=== PATIENT | female | born 1985 | race Caucasian/White ===

== ENCOUNTER 2021-09-28 22:04 | Emergency (ER) | payer BC, SELFPAY ==
[2021-09-28 22:29] VITALS: BP 155/115; PULSE 120; RESP 20; TEMP 36.8; O2SAT 98; BMI 47.0
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
[2021-09-28 23:15] VITALS: BP 171/101; PULSE 109; RESP 18; O2SAT 100
[2021-09-28 23:20] VITALS: BP 147/104; PULSE 111; RESP 18; O2SAT 98
--- NOTE | 2021-09-28 23:24 | ED.NURSE ---
pt ambulatory to the BR
--- NOTE | 2021-09-29 00:39 | ED.NURSE ---
right hand soaking in hibiclens and water
[2021-09-29] MEDS: IBUPROFEN 400 MG TABLET 800 MG PO (01:12)
[2021-09-29] MEDS: OxyCODONE/APAP 5-325 TABLET 2 TAB PO (01:13)
--- NOTE | 2021-09-29 01:31 | CRLHL7_ITS ---
For Patients: As a result of the Century Cures Act, medical imaging exams and procedure reports are released immediately into your electronic medical record. You may view this report before your referring provider. If you have questions, please contact your health care provider. Indication: Foreign body removal. Technique: Right 5th finger 3 views. Comparison: September 28, 2021. Findings/Impression: The bulk of a foreign metallic object adjacent to the middle phalanx of the right 5th finger has been removed. However, several punctate densities remain in this area. No new abnormality. Dictated by Tani Bravo MD @ 09/29/2021 2:03:08 AM (Electronically Signed)
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
== END 2021-09-29 02:20 ==
PROVIDERS: Emergency Provider Family Medicine; PCP Family Medicine
DX: M79.5 Residual foreign body in soft tissue (principal); W39.XXXA Discharge of firework, initial encounter; H93.19 Tinnitus, unspecified ear
CPT/HCPCS: 10120; 70360; 73140; 99282; 99284; A9270

== ENCOUNTER 2022-01-07 08:53 | Outpatient (CLI) | payer BC, SELFPAY ==
[2022-01-07 13:15] LABS: Chloride* 99 mmol/L (96-114); Sodium* 134 mmol/L (135-149)
[2022-01-07 13:16] LABS: Potassium* 4.5 mmol/L (3.6-5.1)
[2022-01-07 13:17] LABS: Estimated Glomerular Filt Rate 75 ml/min
[2022-01-07 13:18] LABS: Blood Urea Nitrogen* 16 mg/dL (5-24); Calcium* 9.4 mg/dL (8.4-10.6); Carbon Dioxide* 24 mmol/L (20-32); Glucose* 85 mg/dL (60-115)
== END 2022-01-07 08:54 | disposition home or self-care (01) ==
LOC: FBOREF 08:54
PROVIDERS: PCP Family Medicine; Visit Provider Family Medicine
DX: I10 Essential (primary) hypertension (principal)
CPT/HCPCS: 80048

== ENCOUNTER 2022-01-28 11:14 | Outpatient (CLI) | payer BC, SELFPAY | END 2022-01-28 11:15 | disposition home or self-care (01) | LOC: NFLDREF 11:14 | PROVIDERS: PCP Family Medicine; Visit Provider Family Medicine | DX: R30.9 Painful micturition, unspecified (principal) | CPT/HCPCS: 87086 ==

== ENCOUNTER 2022-12-03 08:42 | Outpatient (CLI) | payer BC, SELFPAY | END 2022-12-03 08:43 | disposition home or self-care (01) | PROVIDERS: PCP Family Medicine; Visit Provider Family Medicine | DX: Z01.818 Encounter for other preprocedural examination (principal); E55.9 Vitamin D deficiency, unspecified; E66.01 Morbid (severe) obesity due to excess calories; I10 Essential (primary) hypertension; N92.0 Excessive and frequent menstruation with regular cycle | CPT/HCPCS: 80048; 82306; 84443; 85302 ==

== ENCOUNTER 2022-12-08 11:23 | Emergency (ER) | payer BC, SELFPAY ==
[2022-12-08] VITALS (8 sets, daily range): BP systolic 135–142; BP diastolic 78–91; PULSE 90–121; RESP 18–24; TEMP 36.4; O2SAT 96–98; BMI 56.4
--- NOTE | 2022-12-08 11:32 | ED.ARRPALP ---
HPI - Arrhythmia/Palpitations General Time Seen by Provider: 11:32 Date Seen: 12/08/22 Chief Complaint: Arrhythmia/Palpitations Stated Complaint: Tight chest / tailbone injury Time Seen by Provider: 12/08/22 11:27 Source: patient and RN notes reviewed Mode of arrival: ambulatory Limitations: no limitations History of Present Illness HPI narrative: This 37-year-old female is coming in with multitude of symptoms. One of her main issues is increasing tailbone pain. It hurts to sit, sleeping is difficult. She will try to sleep on her stomach or her side with pillows between her legs. She is endorsing that it is hurting in the tailbone to defecate. There is no difficulty with defecation itself or change in stools but it is extremely painful at the tailbone. She is feeling some pain into the right buttock area maybe a little bit down into the lateral thigh. She does have chronic low back pain but this feels different. She has had 4 pregnancies and deliveries in no difficulty with tailbone pain with those. She denies any fevers, no acute trauma. This is been progressively worse over the last few weeks. She also has been experiencing palpitations, fast heart rate generalized chest tightness and shortness of breath. She is scheduled to have a hysterectomy for menometrorrhagia coming up on the or of this month with Dr. Yousif. She states she had a hemoglobin checked not too long ago and it was okay, not anemic. She does note that she is gaining weight, has polycystic ovarian syndrome an with Related Data Home Medications Medication Instructions Recorded Confirmed valacyclovir 1 gram tablet 1,000 mg PO QDAY PRN 12/17/21 12/03/22 omeprazole 20 mg capsule,delayed 20 mg PO DAILY 01/06/22 12/03/22 release cyclobenzaprine 10 mg tablet 10 mg PO 3XD 08/30/22 12/03/22 tramadol 50 mg tablet 50 mg PO TID PRN 12/03/22 12/03/22 Previous Rx's Medication Instructions Recorded tizanidine 4 mg tablet 6 mg (1.5 x 4 mg) PO .hs PRN 12/17/21 muscle spasticity #45 tabs peg 3350-electrolytes 236 240 ml PO Q15M #4,000 mL 09/03/22 gram-22.74 gram-6.74 gram-5.86 gram solution (Golytely) dextroamphetamine-amphetamine ER 25 mg PO QDAY #30 caps 12/03/22 25 mg 24hr capsule,extend release (Adderall XR) lisinopril 10 1 tab PO QDAY #90 tabs 12/03/22 mg-hydrochlorothiazide 12.5 mg tablet cholecalciferol (vitamin D3) 1,250 1,250 mcg PO QWEEK #12 caps 12/05/22 mcg (50,000 unit) capsule doxycycline monohydrate 100 mg 100 mg PO BID #20 tabs 12/08/22 tablet prednisone 20 mg tablet 20 mg PO BID #10 tabs 12/08/22 Allergies Allergy/AdvReac Type Severity Reaction Status Date / Time azithromycin Allergy Unknown Verified 12/03/22 08:24 erythromycin base Allergy Hives Verified 12/03/22 08:24 Penicillins Allergy Hives Verified 12/03/22 08:24 [facility] Medical History (Updated 12/08/22 @ 14:48 by Shania Martinez MD) Vitamin D deficiency ?E55.9 - Vitamin D deficiency, unspecified (ICD-10) Severe pre-eclampsia ?O14.10 - Severe pre-eclampsia, unspecified trimester (ICD-10) -induced hypertension (03/18/11) ?O13.9 - Gestational [-induced] hypertension without significant proteinuria, unspecified trimester (ICD-10) Lymphedema of both lower extremities ?I89.0 - Lymphedema, not elsewhere classified (ICD-10) Hypertension ?I10 - Essential (primary) hypertension (ICD-10) COVID-19 virus infection ?U07.1 - COVID-19 (ICD-10) Generalized anxiety disorder ?F41.1 - Generalized anxiety disorder (ICD-10) Migraine ?G43.909 - Migraine, unspecified, not intractable, without status migrainosus (ICD-10) ADHD ?F90.9 - Attention-deficit hyperactivity disorder, unspecified type (ICD-10) Difficulty sleeping ?G47.9 - Sleep disorder, unspecified (ICD-10) Chronic back pain ?M54.9 - Dorsalgia, unspecified (ICD-10) ?G89.29 - Other chronic pain (ICD-10) Idiopathic urticaria ?L50.1 - Idiopathic urticaria (ICD-10) Surgical History (Updated 09/03/22 @ 18:04 by Maya Yousif MD) S/P laparoscopy (05/16/18) ?Z98.890 - Other specified postprocedural states (ICD-10) Status post laparoscopic appendectomy (01/2020) ?Z90.49 - Acquired absence of other specified parts of digestive tract (ICD-10) History of tonsillectomy and adenoidectomy (1988) ?Z90.89 - Acquired absence of other organs (ICD-10) History of dilation and curettage (10/09/14) ?Z98.890 - Other specified postprocedural states (ICD-10) Family History Aunt Breast cancer Maternal Grandfather Coronary artery disease Maternal Grandfather Diabetes Mother Depression Anxiety Family/Other High cholesterol High blood pressure Social History Narrative: does not exercise, , [employer], 4 kids, rarely consumes alcohol, smoker 10/day Smoking Status: Current every day smoker What tobacco products do you use: cigarettes Smoking packs per day: 0.5 Smoking cigarettes per day: 10.0 Do you use any of these nicotine containing products: None How often do you have a drink containing alcohol: monthly or less AUDIT-C Alcohol total score: 1 Non-prescribed substance use: denies use Little interest or pleasure in doing things: more than half the days Feeling down, depressed, or hopeless: several days service: No Exam Const: Vital Signs, click to edit/add: Vital Signs - 24 hr 12/08/22 11:26 12/08/22 12:36 12/08/22 12:47 Temperature 97.6 F Pulse Rate 96 Pulse Rate [Right Pulse Oximeter] 121 H Respiratory Rate 18 Blood Pressure Blood Pressure [Ri ght Upper Arm] 142/83 H Pulse Oximetry 98 96 96 12/08/22 12:48 12/08/22 12:49 12/08/22 13:00 Temperature Pulse Rate 94 91 92 Pulse Rate [Right Pulse Oximeter] Respiratory Rate Blood Pressure 137/78 Blood Pressure [Ri ght Upper Arm] Pulse Oximetry 97 96 97 12/08/22 13:01 Temperature Pulse Rate 90 Pulse Rate [Right Pulse Oximeter] Respiratory Rate Blood Pressure 135/87 Blood Pressure [Ri ght Upper Arm] Pulse Oximetry 97 37-year-old female that looks uncomfortable lying in exam room 6. She is tearful at times but overall is a very pleasant female. She has good eye contact. Pupils equal round, extraocular muscles intact, sclera clear. Speech is normal. Face atraumatic, symmetrical motor function on examination. Neck is thick, do not feel any masses, no thyromegaly masses or nodules. She is able to sit up but seems a bit uncomfortable doing so due to her tailbone pain per her report, lungs are clear, good air entry, no tachypnea, no wheezing or crackles. CV is regular but fast, no murmur heard, normal S1 and S2. Abdomen is obese but soft nontender certainly no rebound or guarding. She does stand up off the bed, position changes do seem to increase her pain. The intergluteal cleft has no visible abnormality. I cannot reproduce her pain on palpation. There is significant tissue to go through to try to palpate the tailbone and is difficult, cannot really palpate deeply due to body habitus. She has no midline tenderness over spine no significant paraspinous tenderness, I do not feel any acute SI joint tenderness. Straight leg raising on the right gives her more pain in the tailbone area and not truly a radiculopathy into the leg. Patient is able to ambulate on her own, motor of the lower extremities and sensory are normal and symmetric. No lower extremity edema noted. Documenting provider has reviewed patient's vital signs: yes Course Reevaluation(s) Time of Reevaluation #1: 13:00 Reevaluation #1: Reviewed with patient that cardiac markers, EKG, preliminary chest x-ray, D-dimer and other labs are reassuring. Did review mildly elevated liver enzymes and mildly elevated glucose, reviewed the ultrasound showing lipoma in her forearm. This is really problematic, could be scheduled to see General surgery for consultation for removal. Awaiting her pelvic CT to be read. Did ask her about the Adderall. She states she really has not taken it for a couple of weeks. At rest her heart rate has come down. Still awaiting TSH on her pending labs. Time of Reevaluation #2: 14:27 Reevaluation #2: Was delayed getting back to patient to a critical situation in the ED, apologize for the delay. Patient is advised that outside of L5-S1 degenerative disease in her lumbar spine, no acute abnormality noted. She will be given Toradol IV now she is requesting something. Discussed that narcotic pain management will need to come from her primary care provider. We can consider steroids, may help back issues. Really does sound like she is having tailbone pain, may have coccydynia or nontraumatic coccyx pain. May need to be referred to specialist for further management of this. In the meantime, have recommended she follow up with her primary care provider. Did review that she had sinus tachycardia 1 coming in, no evidence of any acute heart attack or other acute pathology on her workup here as far as labs. Just before discharge, did look up the radiologist reading of her chest x-ray and there was a question of an infiltrate. Did review with her that this could be responsible for her chest symptoms and even sinus tachycardia. We will try an antibiotic, have her follow her symptoms. If she has ongoing tachycardia issues, outpatient Holter/ZIO patch an echo can be considered. Her primary care provider is most certainly qualified to help her work through these symptoms. Vital Signs Vital signs: Initial Vital Signs Temperature 97.6 F 12/08/22 11:26 Temperature Source Temporal Artery Scan 12/08/22 11:26 Pulse Rate 121 H 12/08/22 11:26 Respiratory Rate 18 12/08/22 11:26 Blood Pressure 142/83 H 12/08/22 11:26 Blood Pressure Mean 102 12/08/22 11:26 Blood Pressure Position Sitting 12/08/22 11:26 Pulse Oximetry 98 12/08/22 11:26 Vital Signs Temperature 97.6 F 12/08/22 11:26 Pulse Rate 121 H 12/08/22 11:26 Respiratory Rate 18 12/08/22 11:26 Blood Pressure 142/83 H 12/08/22 11:26 Pulse Oximetry 98 12/08/22 11:26 Temperature 97.6 F 12/08/22 11:26 Pulse Rate 90 12/08/22 13:01 Respiratory Rate 18 12/08/22 11:26 Blood Pressure 135/87 12/08/22 13:01 Pulse Oximetry 97 12/08/22 13:01 MDM - Arrhythmia/Palpitations MDM Narrative Medical decision making narrative: Patient does have a multitude of symptoms with the pelvic/tailbone pain, chest symptoms with the chest tightness palpitations, smoking status. Right forearm lump without swelling. I do think we need to consider thromboembolic disease, pelvic pathology including tailbone pathology. Will get a full complement of labs, look at cardiac markers, D-dimer, consider chest CT PE protocol if needed. We will ultrasound her forearm. Given her body habitus, I do not feel that plain coccygeal imaging is going to suffice here. I do think we need to proceed with CT of her pelvis, again complete labs will be obtained. Lab Data Attestation: I reviewed the patient's lab results. Labs: Lab Results 12/08/22 12/08/22 Range/Units 11:44 12:00 WBC 7.02 (4.50-11.00) K/uL RBC 5.00 (4.00-5.20) m/uL Hgb 14.3 (12.0-16.0) gm/dL Hct 42.0 (33.0-51.0) % MCV 84 (80-100) fL MCH 29 (26-34) pg MCHC 34 (32-36) gm/dL RDW Coeff of Rosalina 11.9 (11.5-15.5) % Plt Count 267 (140-440) K/uL Neut % (Auto) 65.2 (42.0-72.0) % Lymph % (Auto) 28.1 (20-44) % Louisa % (Auto) 4.7 (0.0-11.0) % Eos % (Auto) 1.7 (0.0-7.0) % Baso % (Auto) 0.0 (0.0-3.0) % Neut # (Auto) 4.58 (1.7-7.0) K/uL Lymph # (Auto) 1.97 (0.90-2.90) K/uL Louisa # (Auto) 0.30 (0.00-0.90) K/UL Eos # (Auto) 0.12 (0.00-0.50) K/uL Baso # (Auto) 0.00 (0.00-0.30) K/uL Abs Immat Gran (auto) 0.02 (0.00-0.30) K/uL Imm/Tot Granulo (auto) 0.3 % D-Dimer Quant (PE/DVT) 0.27 (0.00-0.50) ug/ml VBG pH 7.381 (7.32-7.43) VBG pCO2 40 (40-50) mmHG VBG pO2 56.6 H (25-47) mmHG VBG HCO3 24 (21-28) mmol/L Sodium 135 (135-149) mmol/L Potassium 4.0 (3.6-5.1) mmol/L Chloride 106 (96-114) mmol/L Carbon Dioxide 23 (20-32) mmol/L Anion Gap 6 L (7-15) mEq/L BUN 15 (5-24) mg/dL Creatinine 1.0 (0.5-1.5) mg/dL Estimated Creat Clear 74.90 Estimated GFR 74 ml/min Glucose 166 H (60-115) mg/dL Lactate 1.4 (0.5-1.9) mmol/L Calcium 9.2 (8.4-10.6) mg/dL Magnesium 1.6 (1.5-2.6) mg/dL Total Bilirubin 0.6 (0.1-1.5) mg/dL AST 52 H (12-35) U/L ALT 68 H (4-35) U/L Alkaline Phosphatase 67 (40-150) U/L C-Reactive Protein 0.8 (0.5-1.0) mg/dL NT-Pro-B Natriuret Pep < 20 pg/mL Total Protein 7.3 (6.0-8.3) g/dL Albumin 4.0 (3.3-5.0) g/dL TSH 1.350 (0.270-4.200) uIU/mL POC Troponin I 0.00 L (0.01-0.04) ng/ml Imaging Data CT- Other: Attestation: I have reviewed the pertinent imaging results. Radiologist's impression: Patient: ISRRAEL VIEYRA Facility:?[facility] Patient ID:?[id number] Site Patient ID:?[id number]. Site :?1985 Study:?CT Pelvis w/o Contrast-12/08/2022 12:54:06 PM Ordering Physician:?Michelle Shania Final Report: HISTORY: Severe tail bone pain for several weeks. No history of injury. FINDINGS: The pelvis was studied in the axial, coronal and sagittal planes. No findings for fracture or destructive lesion in the sacrococcygeal region. The pelvic bones and proximal femurs are also intact. Degenerative disc disease and disc space narrowing is noted at L5/S1. The sacroiliac joints and hip joints are unremarkable. No intrapelvic mass or fluid collection is noted. IMPRESSION: Degenerative disc disease at L5/S1. The remainder the examination is unremarkable. Please note that all CT scans at this facility use dose modulation, iterative reconstruction, and/or weight-based dosing when appropriate to reduce radiation dose to as low as reasonably achievable. Dictated by Héctor Moscoso MD @ 12/08/2022 1:19:45 PM (Electronic Signature) Venous US: Attestation: I have reviewed the pertinent imaging results. Radiologist's impression: Patient: ISRRAEL VIEYRA Facility:?[facility] Patient ID:?[id number] Site Patient ID:?[id number]. Site :?1985 Study:?US Extremity Right upper-12/08/2022 12:37:38 PM Ordering Physician:?Michelle Jauregui Final Report: Indication: palpable lump in forearm Technique: Grayscale and color Doppler ultrasound of the right forearm soft tissues performed. Comparison: None Findings: There is a circumscribed slightly heterogeneous hyperechoic structure within the subcutaneous fat located just beneath the skin measuring 1.6 x 1.0 x 1.1 cm. The adjacent subcutaneous fat appears normal. No abnormal vascularity. The cephalic vein is patent without clot. Impression: Subcutaneous lipoma. No superficial venous thrombosis. Dictated by Rodriguez Donato MD @ 12/08/2022 12:45:03 PM (Electronic Signature) Chest x-ray: Attestation: I have reviewed the pertinent imaging results. Radiologist's impression: Patient: ISRRAEL VIEYRA Facility:?[facility] Patient ID:?[id number] Site Patient ID:?[id number]. Site :?1985 Study:?CT Pelvis w/o Contrast-12/08/2022 12:54:06 PM Ordering Physician:Morteza Jauregui Final Report: HISTORY: Severe tail bone pain for several weeks. No history of injury. FINDINGS: The pelvis was studied in the axial, coronal and sagittal planes. No findings for fracture or destructive lesion in the sacrococcygeal region. The pelvic bones and proximal femurs are also intact. Degenerative disc disease and disc space narrowing is noted at L5/S1. The sacroiliac joints and hip joints are unremarkable. No intrapelvic mass or fluid collection is noted. IMPRESSION: Degenerative disc disease at L5/S1. The remainder the examination is unremarkable. Please note that all CT scans at this facility use dose modulation, iterative reconstruction, and/or weight-based dosing when appropriate to reduce radiation dose to as low as reasonably achievable. Dictated by Héctor Moscoso MD @ 12/08/2022 1:19:45 PM (Electronic Signature) ECG Data Attestation: I personally reviewed and interpreted this ECG as follows: (Normal sinus rhythm, 94 beats per minute. Isolated Q-wave lead [address] segment changes, no other inferior changes. Otherwise, no significant abnormality. QT corrected 472 milliseconds.) ECG interpretation date: 12/08/22 ECG interpretation time: 13:09 Prior ECG tracings: not available for review Critical Care Time Critical Care Time Critical Care Time: No Discharge Plan Discharge Clinical Impression: Lipoma of arm, Coccydynia, Chest tightness, Left lower lobe pneumonia Patient Disposition: Home, Self-Care Condition: Stable Instructions: Chest Pain (ED), Noncardiac Chest Pain (ED), Pneumonia (ED), Lipoma (ED) Additional Instructions: Follow-up with Dr. Almeida within the next 3-5 days. He should recheck you for all your issues that you are seen in the ER today. Will try prednisone, start antibiotic with doxycycline for possible left lower lobe pneumonia. If you are worsening as far as breathing or chest symptoms, develops fever and are progressively becoming more ill, do need to seek re-evaluation. For the back pain and possible coccydynia, may need further workup and evaluation. Will see if the prednisone does help. Activity Level: Activity as Tolerated Prescriptions: New doxycycline monohydrate 100 mg tablet 100 mg PO BID Qty: 20 0RF prednisone 20 mg tablet 20 mg PO BID Qty: 10 0RF No Action omeprazole 20 mg capsule,delayed release(DR/EC) 20 mg PO DAILY tizanidine 4 mg tablet 6 mg PO .hs PRN (Reason: muscle spasticity) Qty: 45 5RF cyclobenzaprine 10 mg tablet 10 mg PO 3XD tramadol 50 mg tablet 50 mg PO TID PRN valacyclovir 1 gram tablet 1,000 mg PO QDAY PRN Patient Comments: TAKE ONE TABLET BY MOUTH ONE TIME DAILY peg 3350-electrolytes [Golytely] 236-22.74-6.74 -5.86 gram recon soln 240 ml PO Q15M Qty: 4000 0RF Rx Instructions: until fecal effluent is clear lisinopril-hydrochlorothiazide 10-12.5 mg tablet 1 tab PO QDAY Qty: 90 1RF dextroamphetamine-amphetamine [Adderall XR] 25 mg capsule,extended release 24hr 25 mg PO QDAY Qty: 30 0RF cholecalciferol (vitamin D3) 1,250 mcg (50,000 unit) capsule 1,250 mcg PO QWEEK Qty: 12 3RF Follow Up/Referrals: Rodriguez Almeida MD [Primary Care Provider] - Stand Alone Forms: [email or web address] Info Instructions
--- NOTE | 2022-12-08 11:43 | CRLHL7_ITS ---
For Patients: As a result of the Century Cures Act, medical imaging exams and procedure reports are released immediately into your electronic medical record. You may view this report before your referring provider. If you have questions, please contact your health care provider. Indication: palpable lump in forearm Technique: Grayscale and color Doppler ultrasound of the right forearm soft tissues performed. Comparison: None Findings: There is a circumscribed slightly heterogeneous hyperechoic structure within the subcutaneous fat located just beneath the skin measuring 1.6 x 1.0 x 1.1 cm. The adjacent subcutaneous fat appears normal. No abnormal vascularity. The cephalic vein is patent without clot. Impression: Subcutaneous lipoma. No superficial venous thrombosis. Dictated by Rodriguez Donato MD @ 12/08/2022 12:45:03 PM (Electronically Signed)
--- NOTE | 2022-12-08 11:43 | CRLHL7_ITS ---
For Patients: As a result of the Century Cures Act, medical imaging exams and procedure reports are released immediately into your electronic medical record. You may view this report before your referring provider. If you have questions, please contact your health care provider. HISTORY: Severe tail bone pain for several weeks. No history of injury. FINDINGS: The pelvis was studied in the axial, coronal and sagittal planes. No findings for fracture or destructive lesion in the sacrococcygeal region. The pelvic bones and proximal femurs are also intact. Degenerative disc disease and disc space narrowing is noted at L5/S1. The sacroiliac joints and hip joints are unremarkable. No intrapelvic mass or fluid collection is noted. IMPRESSION: Degenerative disc disease at L5/S1. The remainder the examination is unremarkable. Please note that all CT scans at this facility use dose modulation, iterative reconstruction, and/or weight-based dosing when appropriate to reduce radiation dose to as low as reasonably achievable. Dictated by Héctor Moscoso MD @ 12/08/2022 1:19:45 PM (Electronically Signed)
--- NOTE | 2022-12-08 11:43 | CRLHL7_ITS ---
For Patients: As a result of the Cures Act, medical imaging exams and procedure reports are released immediately into your electronic medical record. You may view this report before your referring provider. If you have questions, please contact your health care provider. INDICATION: Tachycardia/palpitations, chest tightness. TECHNIQUE: Chest 1 view. COMPARISON: Chest radiograph 12/17/2021. FINDINGS: Low lung volumes. Hazy airspace opacity in the left lung base may be infectious or inflammatory. No pleural effusion or pneumothorax. Normal heart size and pulmonary vascularity. The bones are unremarkable. IMPRESSION: Hazy airspace opacity in the left lung base may be infectious or inflammatory. Dictated by Shelley Acosta MD @ 12/08/2022 1:53:07 PM (Electronically Signed)
[2022-12-08 12:09] LABS: HCO3 VBG 24 mmol/L (21-28); Lactate* 1.4 mmol/L (0.5-1.9); PCO2 VBG 40 mmHG (40-50); PO2 VBG 56.6 mmHG (25-47); pH VBG 7.381 (7.32-7.43)
[2022-12-08 12:11] LABS: Eosinophils Absolute Auto 0.12 K/uL (0.00-0.50); Eosinophils Percent Auto 1.7 % (0.0-7.0); Hemoglobin* 14.3 gm/dL (12.0-16.0); Immature Granulocytes Abs Auto 0.02 K/uL (0.00-0.30); Immature Granulocytes Pct Auto 0.3 %; Lymphocytes Absolute Auto 1.97 K/uL (0.90-2.90); Lymphocytes Percent Auto 28.1 % (20-44); Mean Corpuscular HGB Conc 34 gm/dL (32-36); Mean Corpuscular Hemoglobin 29 pg (26-34); Mean Corpuscular Volume 84 fL (80-100); Monocytes Percent Auto 4.7 % (0.0-11.0); Neutrophils Absolute Auto 4.58 K/uL (1.7-7.0); Neutrophils Percent Auto 65.2 % (42.0-72.0); Platelet Count* 267 K/uL (140-440); RDW Coefficient of Variation % 11.9 % (11.5-15.5); White Blood Count* 7.02 K/uL (4.50-11.00)
[2022-12-08 12:13] LABS: Slide Review Reflex No
[2022-12-08 12:34] LABS: Chloride* 106 mmol/L (96-114); D Dimer Quantitative* 0.27 ug/ml (0.00-0.50); Sodium* 135 mmol/L (135-149)
[2022-12-08 12:36] LABS: Bilirubin Total* 0.6 mg/dL (0.1-1.5); Estimated Glomerular Filt Rate 74 ml/min
[2022-12-08 12:37] LABS: Alanine Aminotransferase* 68 U/L (4-35); Alkaline Phosphatase* 67 U/L (40-150); Anion Gap 6 mEq/L (7-15); Aspartate Amino Transferase* 52 U/L (12-35); Blood Urea Nitrogen* 15 mg/dL (5-24); Carbon Dioxide* 23 mmol/L (20-32); Glucose* 166 mg/dL (60-115); Total Protein* 7.3 g/dL (6.0-8.3)
[2022-12-08 12:38] LABS: Calcium* 9.2 mg/dL (8.4-10.6); Magnesium* 1.6 mg/dL (1.5-2.6)
[2022-12-08 12:40] LABS: C Reactive Protein* 0.8 mg/dL (0.5-1.0)
[2022-12-08 12:52] LABS: NT Pro B Type NatriureticPept* < 20 pg/mL
[2022-12-08] MEDS: KETOROLAC 15 MG/ML inj IVP (14:47)
== END 2022-12-08 15:15 | disposition home or self-care (01) ==
PROVIDERS: Emergency Provider Family Medicine; PCP Family Medicine
DX: R07.89 Other chest pain (principal); J18.9 Pneumonia, unspecified organism; M53.3 Sacrococcygeal disorders, not elsewhere classified; D17.21 Benign lipomatous neoplasm of skin and subcutaneous tissue of right arm
CPT/HCPCS: 36415; 71045; 72192; 76882; 80053; 82803; 83605; 83735; 83880; 84443; 84484; 85025; 85379; 86140; 93005; 93971; 94761; 96374; 99284; J1885

== ENCOUNTER 2023-01-13 19:08 | Emergency (ER) | payer BC, SELFPAY ==
[2023-01-13 19:22] VITALS: BP 137/83; PULSE 106; RESP 20; TEMP 36.6; O2SAT 97; BMI 54.8
--- NOTE | 2023-01-13 19:48 | CRLHL7_ITS ---
For Patients: As a result of the Cures Act, medical imaging exams and procedure reports are released immediately into your electronic medical record. You may view this report before your referring provider. If you have questions, please contact your health care provider. INDICATION: .SOB,COUGH TECHNIQUE: Chest 2 views. COMPARISON: November 2022. FINDINGS: Lungs: Low lung volumes. No consolidation. The tracheobronchial tree and hilar structures are unremarkable. Pleura: No pleural effusion or pneumothorax. Heart and Mediastinum: Normal heart size. The great vessels of the thorax are unremarkable. Bones: No acute displaced osseous process. IMPRESSION: No consolidation. Dictated by Rodriguez Mario MD @ 01/13/2023 8:22:52 PM (Electronically Signed)
[2023-01-13] MEDS: LACTATED RINGERS 1000 ML 1,000 ML IV (20:12)
[2023-01-13 20:18] LABS: PCR FLU A Negative PCR FLU A (Negative); PCR FLU B Negative PCR FLU B (Negative); PCR RSV Negative PCR RSV (Negative)
[2023-01-13 20:21] LABS: Basophils Absolute Auto 0.01 K/uL (0.00-0.30); Basophils Percent Auto 0.2 % (0.0-3.0); Eosinophils Absolute Auto 0.04 K/uL (0.00-0.50); Eosinophils Percent Auto 0.6 % (0.0-7.0); Hematocrit 41.8 % (33.0-51.0); Hemoglobin* 14.3 gm/dL (12.0-16.0); Immature Granulocytes Abs Auto 0.01 K/uL (0.00-0.30); Immature Granulocytes Pct Auto 0.2 %; Lymphocytes Absolute Auto 1.42 K/uL (0.90-2.90); Mean Corpuscular HGB Conc 34 gm/dL (32-36); Mean Corpuscular Hemoglobin 29 pg (26-34); Mean Corpuscular Volume 85 fL (80-100); Monocytes Percent Auto 8.7 % (0.0-11.0); Neutrophils Absolute Auto 4.41 K/uL (1.7-7.0); Neutrophils Percent Auto 68.3 % (42.0-72.0); Platelet Count* 162 K/uL (140-440); RDW Coefficient of Variation % 12.5 % (11.5-15.5); Red Blood Count 4.92 m/uL (4.00-5.20); White Blood Count* 6.45 K/uL (4.50-11.00)
[2023-01-13 20:23] LABS: SARS PCR* POSITIVE SARS-CoV-2 (Negative)
[2023-01-13] MEDS: KETOROLAC 15 MG/ML inj IVP (20:23)
[2023-01-13 20:24] LABS: Slide Review Reflex No
[2023-01-13] MEDS: diphenhydrAMINE 50 MG/ML inj 25 MG IVP (20:25)
[2023-01-13] MEDS: METOCLOPRAMIDE HCL 5 MG/ML INJ 10 MG IVP (20:27)
[2023-01-13 20:33] LABS: Chloride* 105 mmol/L (96-114); Potassium* 3.9 mmol/L (3.6-5.1); Sodium* 136 mmol/L (135-149)
[2023-01-13 20:36] LABS: Anion Gap 9 mEq/L (7-15); Blood Urea Nitrogen* 13 mg/dL (5-24); Carbon Dioxide* 22 mmol/L (20-32); Creatinine* 0.9 mg/dL (0.5-1.5); Est. Creatinine Clearance* 83.23; Estimated Glomerular Filt Rate 84 ml/min; Glucose* 115 mg/dL (60-115)
[2023-01-13 20:37] LABS: Calcium* 9.3 mg/dL (8.4-10.6)
--- NOTE | 2023-01-13 20:41 | ED.GENADULT ---
HPI - General Adult General Date Seen: 01/13/23 Chief complaint: Cough Stated complaint: Cough, lightheaded Time Seen by Provider: 01/13/23 19:19 Source: patient Mode of arrival: ambulatory Limitations: no limitations History of Present Illness HPI narrative: Patient is a 37-year-old female presenting to the emergency department for cough, shortness of breath, muscle ache. She states symptoms started yesterday. She does note she was in contact with a COVID positive person 2 weeks ago. She was also treated with azithromycin for a pneumonia 2 weeks ago. She says she never fully recovered. Patient states she got acutely worse last night. Has not had a fever but has felt warm. Last took Tylenol few hours prior to arrival. Also states she is having a headache. She feels very fatigued. Denies ever having symptoms like this before. This is not aware of any other sick contacts. Has some chest pain that of is tender in the midsternal and radiates to the bilateral lower ribs. Says is hurts worse whenever she coughs. Related Data Home Medications Medication Instructions Recorded Confirmed valacyclovir 1 gram tablet 1,000 mg PO QDAY PRN 12/17/21 01/13/23 omeprazole 20 mg capsule,delayed 20 mg PO DAILY 01/06/22 01/13/23 release cyclobenzaprine 10 mg tablet 10 mg PO 3XD 08/30/22 01/13/23 tramadol 50 mg tablet 50 mg PO TID PRN 12/03/22 01/13/23 Previous Rx's Medication Instructions Recorded tizanidine 4 mg tablet 6 mg (1.5 x 4 mg) PO .hs PRN 12/17/21 muscle spasticity #45 tabs dextroamphetamine-amphetamine ER 25 mg PO QDAY #30 caps 12/03/22 25 mg 24hr capsule,extend release (Adderall XR) lisinopril 10 1 tab PO QDAY #90 tabs 12/03/22 mg-hydrochlorothiazide 12.5 mg tablet cholecalciferol (vitamin D3) 1,250 1,250 mcg PO QWEEK #12 caps 12/05/22 mcg (50,000 unit) capsule albuterol sulfate 90 mcg/actuation 2 puff inhalation Q4-6H PRN 12/13/22 aerosol inhaler shortness of breath or wheezing #8.5 grams Allergies Allergy/AdvReac Type Severity Reaction Status Date / Time cefdinir Allergy Mild itching, Verified 12/21/22 09:06 hives azithromycin Allergy Unknown Verified 12/13/22 13:45 erythromycin base Allergy Hives Verified 12/13/22 13:45 Penicillins Allergy Hives Verified 12/13/22 13:45 Review of Systems Status of ROS: Reports: 10 or more systems reviewed and unremarkable except as noted in History and below [facility] Medical History (Updated 01/13/23 @ 21:24 by Amandeep De Leon DO) Vitamin D deficiency ?E55.9 - Vitamin D deficiency, unspecified (ICD-10) Severe pre-eclampsia ?O14.10 - Severe pre-eclampsia, unspecified trimester (ICD-10) -induced hypertension (03/18/11) ?O13.9 - Gestational [-induced] hypertension without significant proteinuria, unspecified trimester (ICD-10) Lymphedema of both lower extremities ?I89.0 - Lymphedema, not elsewhere classified (ICD-10) Hypertension ?I10 - Essential (primary) hypertension (ICD-10) COVID-19 virus infection ?U07.1 - COVID-19 (ICD-10) Generalized anxiety disorder ?F41.1 - Generalized anxiety disorder (ICD-10) Migraine ?G43.909 - Migraine, unspecified, not intractable, without status migrainosus (ICD-10) ADHD ?F90.9 - Attention-deficit hyperactivity disorder, unspecified type (ICD-10) Difficulty sleeping ?G47.9 - Sleep disorder, unspecified (ICD-10) Chronic back pain ?M54.9 - Dorsalgia, unspecified (ICD-10) ?G89.29 - Other chronic pain (ICD-10) Idiopathic urticaria ?L50.1 - Idiopathic urticaria (ICD-10) Surgical History (Updated 09/03/22 @ 18:04 by Maya Yousif MD) S/P laparoscopy (05/16/18) ?Z98.890 - Other specified postprocedural states (ICD-10) Status post laparoscopic appendectomy (01/2020) ?Z90.49 - Acquired absence of other specified parts of digestive tract (ICD-10) History of tonsillectomy and adenoidectomy (1988) ?Z90.89 - Acquired absence of other organs (ICD-10) History of dilation and curettage (10/09/14) ?Z98.890 - Other specified postprocedural states (ICD-10) Family History Aunt Breast cancer Maternal Grandfather Coronary artery disease Maternal Grandfather Diabetes Mother Depression Anxiety Family/Other High cholesterol High blood pressure Social History Narrative: does not exercise, , [employer], 4 kids, rarely consumes alcohol, smoker 10/day Smoking Status: Current every day smoker What tobacco products do you use: cigarettes Smoking packs per day: 0.5 Smoking cigarettes per day: 10.0 Do you use any of these nicotine containing products: None How often do you have a drink containing alcohol: monthly or less AUDIT-C Alcohol total score: 1 Non-prescribed substance use: denies use service: No Exam Narrative: Exam Narrative: Const: Well-nourished, Well-developed, in mild distress Eyes: PERRL, no conjunctival injection, and symmetrical lids HENT: Atraumatic external nose and ears. Moist mucous membranes. Neck: Symmetric, trachea midline, No thyromegaly. CVS: RRR, No murmurs or gallops. Peripheral pulses 2+ and equal in all extremities RESP: Unlabored respiratory effort. Clear to auscultation bilaterally. GI: Nontender/Nondistended, No rebound or guarding. MSK:Extremities w/o deformity, Normal Active ROM. tenderness to palpation midsternal chest Skin: Warm, Dry. No rashes or lesions. Neuro: Normal Muscle tone, No focal neurological deficits. Psych: Awake, Alert, & Oriented x3. Appropriate mood and affect. Const: Vital Signs, click to edit/add: Vital Signs - 24 hr 01/13/23 19:22 01/13/23 21:00 Temperature 97.9 F 98 F Pulse Rate [Pulse Oximeter] 106 H 89 Respiratory Rate 20 22 Blood Pressure [Ri ght Forearm] 137/83 131/81 Pulse Oximetry 97 96 Oxygen Delivery Me thod Room Air Room Air Course Vital Signs Vital signs: Initial Vital Signs Temperature 97.9 F 01/13/23 19:22 Temperature Source Temporal Artery Scan 01/13/23 19:22 Pulse Rate 106 H 01/13/23 19:22 Respiratory Rate 20 01/13/23 19:22 Blood Pressure 137/83 01/13/23 19:22 Blood Pressure Mean 101 01/13/23 19:22 Blood Pressure Position Sitting 01/13/23 19:22 Pulse Oximetry 97 01/13/23 19:22 Oxygen Delivery Method Room Air 01/13/23 19:22 Vital Signs Temperature 97.9 F 01/13/23 19:22 Pulse Rate 106 H 01/13/23 19:22 Respiratory Rate 20 01/13/23 19:22 Blood Pressure 137/83 01/13/23 19:22 Pulse Oximetry 97 01/13/23 19:22 Oxygen Delivery Method Room Air 01/13/23 19:22 Temperature 98 F 01/13/23 21:00 Pulse Rate 89 01/13/23 21:00 Respiratory Rate 22 01/13/23 21:00 Blood Pressure 131/81 01/13/23 21:00 Pulse Oximetry 96 01/13/23 21:00 Oxygen Delivery Method Room Air 01/13/23 21:00 Medical Decision Making [facility] Narrative Medical decision making narrative: Patient is a 37-year-old female presenting for multiple complaints. They sound to be viral in nature. She is having a headache so will give her Toradol, Reglan, Benadryl, a L of fluids. Chest x-ray was ordered and showed no concerning abnormalities CBC BMP showed no concerning abnormalities. She is COVID positive is likely the cause of his symptoms. No signs of pneumonia or pneumothorax. Unlikely to be related to aortic dissection or ACS considering all her pain is reproducible on palpation. Troponin was negative and EKG was normal. I do not believe it is necessary to repeat troponin. Patient's headache is much better at this time and she feels well to go home. Patient be discharged home. Mary Carmen was sent through [employer] [facility] Data Labs: Lab Results 01/13/23 01/13/23 01/13/23 Range/Units 19:37 20:12 20:24 WBC 6.45 (4.50-11.00) K/uL RBC 4.92 (4.00-5.20) m/uL Hgb 14.3 (12.0-16.0) gm/dL Hct 41.8 (33.0-51.0) % MCV 85 (80-100) fL MCH 29 (26-34) pg MCHC 34 (32-36) gm/dL RDW Coeff of Rosalina 12.5 (11.5-15.5) % Plt Count 162 (140-440) K/uL Neut % (Auto) 68.3 (42.0-72.0) % Lymph % (Auto) 22.0 (20-44) % [place] % (Auto) 8.7 (0.0-11.0) % Eos % (Auto) 0.6 (0.0-7.0) % Baso % (Auto) 0.2 (0.0-3.0) % Neut # (Auto) 4.41 (1.7-7.0) K/uL Lymph # (Auto) 1.42 (0.90-2.90) K/uL [place] # (Auto) 0.60 (0.00-0.90) K/UL Eos # (Auto) 0.04 (0.00-0.50) K/uL Baso # (Auto) 0.01 (0.00-0.30) K/uL Abs Immat Gran (auto) 0.01 (0.00-0.30) K/uL Imm/Tot Granulo (auto) 0.2 % Sodium 136 (135-149) mmol/L Potassium 3.9 (3.6-5.1) mmol/L Chloride 105 (96-114) mmol/L Carbon Dioxide 22 (20-32) mmol/L Anion Gap 9 (7-15) mEq/L BUN 13 (5-24) mg/dL Creatinine 0.9 (0.5-1.5) mg/dL Estimated Creat Clear 83.23 Estimated GFR 84 ml/min Glucose 115 (60-115) mg/dL Calcium 9.3 (8.4-10.6) mg/dL Troponin I < 0.01 L (0.01-0.04) ng/mL SARS-CoV-2 (PCR) POSITIVE SARS-CoV-2 A (Negative) Influenza Type A (PCR) Negative PCR FLU A (Negative) Influenza Type B (PCR) Negative PCR FLU B (Negative) RSV (PCR) Negative PCR RSV (Negative) Lab Acknowledgement Test Added 01/13/23 Range/Units 20:50 WBC (4.50-11.00) K/uL RBC (4.00-5.20) m/uL Hgb (12.0-16.0) gm/dL Hct (33.0-51.0) % MCV (80-100) fL MCH (26-34) pg MCHC (32-36) gm/dL RDW Coeff of Rosalina (11.5-15.5) % Plt Count (140-440) K/uL Neut % (Auto) (42.0-72.0) % Lymph % (Auto) (20-44) % [place] % (Auto) (0.0-11.0) % Eos % (Auto) (0.0-7.0) % Baso % (Auto) (0.0-3.0) % Neut # (Auto) (1.7-7.0) K/uL Lymph # (Auto) (0.90-2.90) K/uL [place] # (Auto) (0.00-0.90) K/UL Eos # (Auto) (0.00-0.50) K/uL Baso # (Auto) (0.00-0.30) K/uL Abs Immat Gran (auto) (0.00-0.30) K/uL Imm/Tot Granulo (auto) % Sodium (135-149) mmol/L Potassium (3.6-5.1) mmol/L Chloride (96-114) mmol/L Carbon Dioxide (20-32) mmol/L Anion Gap (7-15) mEq/L BUN (5-24) mg/dL Creatinine (0.5-1.5) mg/dL Estimated Creat Clear Estimated GFR ml/min Glucose (60-115) mg/dL Calcium (8.4-10.6) mg/dL Troponin I (0.01-0.04) ng/mL SARS-CoV-2 (PCR) (Negative) Influenza Type A (PCR) (Negative) Influenza Type B (PCR) (Negative) RSV (PCR) (Negative) Lab Acknowledgement Test Added Imaging Data Chest x-ray: Radiologist's impression: INDICATION: .SOB,COUGH TECHNIQUE: Chest 2 views. COMPARISON: November 2022. FINDINGS: Lungs: Low lung volumes. No consolidation. The tracheobronchial tree and hilar structures are unremarkable. Pleura: No pleural effusion or pneumothorax. Heart and Mediastinum: Normal heart size. The great vessels of the thorax are unremarkable. Bones: No acute displaced osseous process. IMPRESSION: No consolidation. Dictated by Rodriguez Mario MD @ 01/13/2023 8:22:52 PM ECG Data Attestation: I personally reviewed and interpreted this ECG as follows: Interpretation: Normal sinus rhythm the rate 92 beats per minute, normal intervals, normal axis, no ST or T-wave abnormalities Discharge Plan Discharge Clinical Impression: COVID Patient Disposition: Home, Self-Care Condition: Improved Instructions: COVID-19 (Coronavirus Disease 2019) (ED) Additional Instructions: Take Zofran as needed for nausea and stay well hydrated. If symptoms persist follow-up with the primary care provider. Return to emergency department for new or worsening symptoms Prescriptions: No Action omeprazole 20 mg capsule,delayed release(DR/EC) 20 mg PO DAILY tizanidine 4 mg tablet 6 mg PO .hs PRN (Reason: muscle spasticity) Qty: 45 5RF cyclobenzaprine 10 mg tablet 10 mg PO 3XD tramadol 50 mg tablet 50 mg PO TID PRN albuterol sulfate 90 mcg/actuation HFA aerosol inhaler 2 puff inhalation Q4-6H PRN (Reason: shortness of breath or wheezing) Qty: 8.5 0RF valacyclovir 1 gram tablet 1,000 mg PO QDAY PRN Patient Comments: TAKE ONE TABLET BY MOUTH ONE TIME DAILY lisinopril-hydrochlorothiazide 10-12.5 mg tablet 1 tab PO QDAY Qty: 90 1RF dextroamphetamine-amphetamine [Adderall XR] 25 mg capsule,extended release 24hr 25 mg PO QDAY Qty: 30 0RF cholecalciferol (vitamin D3) 1,250 mcg (50,000 unit) capsule 1,250 mcg PO QWEEK Qty: 12 3RF Follow Up/Referrals: Rodriguez Almeida MD [Primary Care Provider] - Stand Alone Forms: [employer] Info Instructions
[2023-01-13 21:00] VITALS: BP 131/81; PULSE 89; RESP 22; TEMP 36.6; O2SAT 96
[2023-01-13 21:16] LABS: Troponin I* < 0.01 ng/mL (0.01-0.04)
== END 2023-01-13 21:46 | disposition home or self-care (01) ==
PROVIDERS: Emergency Provider Student in an Organized Health Care Education/Training Program; PCP Family Medicine
DX: U07.1 COVID-19 (principal)
CPT/HCPCS: 36415; 71046; 80048; 84484; 85025; 87631; 93005; 96374; 96375; 99283; 99284; 99285; J1200; J1885; J2765; J7120

== ENCOUNTER 2023-05-09 10:35 | Outpatient (CLI) | payer BC, SELFPAY ==
--- NOTE | 2023-05-09 10:45 | US_ITS ---
TRANSABDOMINAL AND TRANSVAGINAL PELVIC ULTRASOUND. INDICATION: EXCESSIVE AND FREQUENT BLEEDING. COMPARISON: NONE TECHNIQUE: ROUTINE GRAYSCALE ULTRASOUND OF THE PELVIS PERFORMED WITH TRANSABDOMINAL AND TRANSVAGINAL TECHNIQUE. FINDINGS: THE UTERUS MEASURES 10.4 X 6.1 X 7.4 CM. MILD HETEROGENEITY OF THE ECHOTEXTURE WITHOUT DEFINED FIBROID. THE ENDOMETRIUM MEASURES 9 MM. A CALCIFICATION IS ASSOCIATED WITH THE ENDOMETRIUM. NO ENDOMETRIAL FLUID. THE OVARIES ARE NOT VISUALIZED. NO ADNEXAL MASS OR PELVIC FREE FLUID. IMPRESSION: ENDOMETRIAL THICKNESS 9 MM WITHOUT ENDOMETRIAL FLUID OR UTERINE FIBROID. NONVISUALIZATION OF THE OVARIES.
== END 2023-05-09 10:36 | disposition home or self-care (01) ==
LOC: US 10:36
PROVIDERS: PCP Family Medicine; Visit Provider Obstetrics & Gynecology
DX: N92.0 Excessive and frequent menstruation with regular cycle (principal); R93.89 Abnormal findings on diagnostic imaging of other specified body structures
CPT/HCPCS: 76830; 76856

== ENCOUNTER 2023-05-19 16:38 | Outpatient (CLI) | payer BC, SELFPAY | END 2023-05-19 16:39 | disposition home or self-care (01) | PROVIDERS: PCP Family Medicine; Visit Provider Family Medicine | DX: I10 Essential (primary) hypertension (principal); E66.01 Morbid (severe) obesity due to excess calories; Z68.42 Body mass index [BMI] 45.0-49.9, adult | CPT/HCPCS: 80053; 82306; 84439; 84443 ==

== ENCOUNTER 2023-06-06 07:02 | Outpatient (CLI) | payer BC, SELFPAY ==
--- NOTE | 2023-06-06 07:15 | US_ITS ---
Patient: ISRRAEL VIEYRA Facility:?[facility] Patient ID:?[id number] Site Patient ID:?[id number] Site :?1985 Study:?US-Abdomen RUQ-06/06/2023 7:52:25 AM Ordering Physician:TIN Final Report: INDICATION: Unspecified abdominal pain COMPARISON: CT 06/21/2021 TECHNIQUE: Real time perez scale imaging and color Doppler analysis was performed of the right upper quadrant. FINDINGS: The patient`s liver is increased in size measuring 23.3 cm. Liver echotexture is diffusely increased with areas of focal fatty sparing. No intrahepatic mass. Main portal vein is patent and measures 1.1 cm. There is a normal appearance of the hepatic IVC and proximal abdominal aorta. There is no evidence of ascites. The gallbladder is of normal size and there is no evidence of intraluminal stones or sludge. The gallbladder wall measures 1.9 mm in thickness. The common bile duct is of normal size and measures 4.5 mm in diameter at the level of the holley hepatis. The pancreas is not well visualized. There is no evidence of a stone or hydronephrosis within the right kidney. The right kidney measures 12.8 cm in length. IMPRESSION: Hepatomegaly with diffuse hepatic steatosis. Normal gallbladder. Dictated by Rodriguez Donato MD @ 06/06/2023 9:21:14 AM Signed by:?Rodriguez Donato MD @06/06/2023 9:21:14 AM (Electronic Signature)
--- NOTE | 2023-06-06 08:00 | CT_ITS ---
Patient: ISRRAEL VIEYRA Facility:?[facility] Patient ID:?[id number] Site Patient ID:?[id number] Site :?1985 Study:?CT-Sinus WITHOUT-06/06/2023 7:49:39 AM Ordering Physician:TIN Final Report: INDICATION: Headaches. TECHNIQUE: Noncontrast CT images of the paranasal sinuses. COMPARISON: None. FINDINGS: No air-fluid levels to suggest acute sinusitis. Hypoplastic right maxillary sinus. The maxillary sinuses are clear. The ethmoid infundibula are widely patent. The frontal sinuses and frontal recesses are clear. Mild opacification of the right ethmoid air cells. Minimal left sphenoid sinus mucosal thickening. The right sphenoid sinus is clear. The sphenoethmoidal recesses are widely patent. The nasal septum is essentially midline. No nasal cavity masses. The mastoid air cells are clear. IMPRESSION: Minimal paranasal sinus mucosal disease. No air-fluid levels to suggest acute sinusitis. Please note that all CT scans at this facility use dose modulation, iterative reconstruction, and/or weight-based dosing when appropriate to reduce radiation dose to as low as reasonably achievable. Dictated by Nilay Padilla MD @ 06/06/2023 9:04:46 AM Signed by:?Nilay Padilla MD @06/06/2023 9:04:46 AM (Electronic Signature)
== END 2023-06-06 07:03 | disposition home or self-care (01) ==
PROVIDERS: PCP Family Medicine; Visit Provider Otolaryngology
DX: R51.9 Headache, unspecified (principal); J32.9 Chronic sinusitis, unspecified; R10.9 Unspecified abdominal pain; K76.0 Fatty (change of) liver, not elsewhere classified; R16.0 Hepatomegaly, not elsewhere classified; R79.89 Other specified abnormal findings of blood chemistry; Z80.0 Family history of malignant neoplasm of digestive organs; Z98.890 Other specified postprocedural states
CPT/HCPCS: 70486; 76705

== ENCOUNTER 2023-07-20 06:03 | Day surgery (SDC) | payer BC, SELFPAY ==
[2023-07-20] MEDS: LACTATED RINGERS 1000 ML 1,000 ML 100 ML IV (06:10)
[2023-07-20 06:27] LABS: Ur HCG Qualitative* Negative (Negative)
[2023-07-20 06:35] VITALS: BMI 58.2
[2023-07-20 06:47] VITALS: BP 133/85; PULSE 91; RESP 18; TEMP 36.6; O2SAT 96
[2023-07-20] MEDS: SODIUM CHLORIDE 0.9 % (FLUSH) 10 ML SYRINGE IVF (06:53)
[2023-07-20] MEDS: BUPIVACAINE 0.25% 30 ML INJECTION (08:00)
[2023-07-20] MEDS: LIDOCAINE 1% MDV 20 ML INJECTION (08:00)
--- NOTE | 2023-07-20 08:19 | SUR.OPER ---
60 ml fluid deficit for hysteroscopy
[2023-07-20 08:35] VITALS: BP 145/90; PULSE 77; RESP 18; TEMP 36.5; O2SAT 99
--- NOTE | 2023-07-20 08:39 | P.GYNPRC_ITS ---
Procedure Note Date of procedure: 07/20/23 Will [facility] bill your pro fee for this procedure?: Yes Pre-op diagnosis: Menorrhagia. Morbid obesity. Post-op diagnosis: Same. Procedure: Hysteroscopy. D&C. Attempted endometrial ablation. Anesthesia: MAC and local (paracervical block) Complications: None. Surgeon: Maya Yousif MD Estimated blood loss (mL): 15 Pathology: specimen obtained, sent to pathology (endometrial curettings) Condition: stable Disposition: same day Findings: Normal appearing uterine cavity. Procedure Description: After obtaining informed consent, the patient was taken to the operating room where she received monitored anesthesia care. She was prepared and draped in the normal sterile fashion, in the dorsal lithotomy position. An open-sided bivalve speculum was introduced into the vagina and the cervix visualized. The anterior lip of the cervix was grasped with a single-tooth tenaculum for traction. A paracervical block was then administered using a total of 20 mL of a 50/50 mixture of 0.25% Marcaine and 1% lidocaine plain. The uterus was gently sounded. Sound length was 10 cm. The cervix length was determined to be 3.5 cm using Hegar dilators, yielding a uterine cavity length of 6.5 cm. The cervix was gently dilated to a #6 Hegar dilator. A hysteroscope was then advanced under direct visualization through the cervix into the uterine cavity. Sterile normal saline was used as distending medium. The uterine cavity was carefully inspected with the findings noted above. The hysteroscope was then removed. The endometrial lining was then sharply curetted. The Jane device was then set to a cavity length of 6.5 cm, inserted through the cervical os into the uterine cavity to the level of the fundus, and deployed. The device was sealed against the cervix. The safety checks were then passed x2 and the 2-minute treatment cycle initiated. A 006 error was en encountered, indicating a problem with plasma formation in the array. Per the device instructions, the device was removed, unplugged, then plugged in again, inserted into the uterine cavity, deployed, sealed against the cervix, and cavity assessment performed and passed. The same error occurred once the treatment cycle was attempted. The device was removed. The device scheduling representative and their plastics tooling engineer were contacted/consulted via telephone. Two additional devices were tried 2-3 times each, using two different lot numbers, and once wile maintained gentle pressure on the handpiece to attempt to keep the array more fully open. All attempts resulted in the 006 error. It was decided that the patient's body habitus was contributing too much pressure on the uterus and thus the balloon/array, such that the plasma could not form for the treatment cycle. The ablation attempts were discontinued. The tenaculum was removed. There was little bleeding from the tenaculum site, which was controlled with direct pressure sponge stick. All instruments were then removed. The patient tolerated the procedure well. Sponge, lap, needle, and instrument counts reported as correct x2. The patient was taken to the recovery room awake in a stable condition.
[2023-07-20 08:45] VITALS: BP 119/102; PULSE 82; RESP 20; O2SAT 99
[2023-07-20 09:00] VITALS: BP 141/99; PULSE 79; RESP 20; TEMP 36.5; O2SAT 97
--- NOTE | 2023-07-20 09:10 | W.ANESCHARGE ---
Anesthesia Charges Start Date/Time Anesthesia Start Date: 07/20/23 Anesthesia Start Time: 07:30 Stop Date/Time Anesthesia Stop Date: 07/20/23 Anesthesia Stop Time: 08:38
[2023-07-20 09:15] VITALS: BP 119/72; PULSE 70; RESP 18; TEMP 36.8; O2SAT 98
[2023-07-20 09:30] VITALS: BP 143/92; PULSE 85; RESP 22; O2SAT 97
--- NOTE | 2023-07-20 09:47 | W.ANESCHARGE ---
Anesthesia Charges Start Date/Time Anesthesia Start Date: 07/20/23 Anesthesia Start Time: 07:30 Stop Date/Time Anesthesia Stop Date: 07/20/23 Anesthesia Stop Time: 08:38
== END 2023-07-20 09:34 | disposition home or self-care (01) ==
PROVIDERS: PCP Family Medicine; Visit Provider Obstetrics & Gynecology
PROC: 0UF98ZZ Fragmentation in Uterus, Via Natural or Artificial Opening Endoscopic (ICD-10-PCS; CPT 58558; principal; 2023-07-20 07:15)
DX: N92.0 Excessive and frequent menstruation with regular cycle (principal); E66.01 Morbid (severe) obesity due to excess calories; Z68.43 Body mass index [BMI] 50.0-59.9, adult
CPT/HCPCS: 58558; 00952; 81025; 88305; J0665; J1100; J1885; J2250; J2405; J2704; J3010; J3490; J7120

== ENCOUNTER 2023-07-31 14:47 | Outpatient (CLI) | payer BC, SELFPAY | END 2023-07-31 14:48 | disposition home or self-care (01) | LOC: NFLDREF 08-01 05:13 | PROVIDERS: PCP Family Medicine; Referring Provider Family Medicine; Visit Provider Physician Assistant | DX: N39.0 Urinary tract infection, site not specified (principal) | CPT/HCPCS: 87086 ==

== ENCOUNTER 2023-10-19 20:35 | Emergency (ER) | payer BC, SELFPAY ==
[2023-10-19] VITALS (16 sets, daily range): BP systolic 149–176; BP diastolic 84–114; PULSE 72–93; RESP 20; TEMP 36.8; O2SAT 94–99; BMI 54.3
--- NOTE | 2023-10-19 20:56 | ED_ITS ---
HPI - General Adult General Time Seen by Provider: 20:56 Date Seen: 10/19/23 Chief complaint: Headache/Migraine Stated complaint: migraine Time Seen by Provider: 10/19/23 20:52 Source: patient and RN notes reviewed Mode of arrival: ambulatory Limitations: no limitations History of Present Illness HPI narrative: This 38-year-old female has been having migraines since yesterday. Started more in front of her head by her eyes. It has generalized her whole head. Some nausea but no vomiting. She does have phonophobia and photophobia. There has been no associated cough or cold symptoms. She states she just feels weird, feels foggy. She has noticed no neurologic changes. Her 14-year-old daughter thought perhaps she was maybe having a stroke and may need patient's sister come get her. She is noticed no numbness tingling weakness anywhere, no focal neurologic changes such as motor issues in and extremity, her speech has been normal. Her vision feels a little blurry globally, not 1 eye or the other. She denies any prodromal scotoma with her migraines. She does have a history of migraines. Normally she will just take Tylenol and ibuprofen, has not helped this at all. No trauma. Typically she states stress will precipitate her migraines but she really has not noted that. She feels somewhat like when she had preeclampsia in her blood pressure was in the 200 range from a prior . Related Data Home Medications ?Medication ?Instructions ?Recorded ?Confirmed omeprazole 20 mg capsule,delayed 20 mg PO DAILY PRN 05/19/23 08/29/23 release Previous Rx's ?Medication ?Instructions ?Recorded lisinopril 10 1 tab PO QDAY #90 tabs 12/03/22 mg-hydrochlorothiazide 12.5 mg tablet cholecalciferol (vitamin D3) 1,250 1,250 mcg PO QWEEK #12 caps 12/05/22 mcg (50,000 unit) capsule albuterol sulfate 90 mcg/actuation 2 puff inhalation Q4-6H PRN 12/13/22 aerosol inhaler shortness of breath or wheezing #8.5 grams zolpidem 5 mg tablet (Ambien) 5 mg PO QHS #1 tab 05/12/23 bupropion HCl 150 mg 24 hr tablet, 150 mg PO QAM #30 tabs 05/19/23 extended release (Wellbutrin XL) tranexamic acid 650 mg tablet 1,300 mg (2 x 650 mg) PO TID 5 05/19/23 days #30 tabs aspirin 81 mg tablet,delayed 81 mg PO QDAY #90 tabs 05/24/23 release atorvastatin 10 mg tablet 10 mg PO QHS #90 tabs 05/24/23 baclofen 10 mg tablet 10 mg PO TID PRN muscle spasm #240 05/24/23 tabs dextroamphetamine-amphetamine ER 25 mg PO QAM #30 caps 08/26/23 25 mg 24hr capsule,extend release ondansetron 4 mg disintegrating 4 mg PO Q8H PRN for 08/26/23 tablet nausea/vomiting #14 tabs semaglutide 2 mg/dose (8 mg/3 mL) 2 mg (0.75 mL) subcut QWEEK #3 mL 09/05/23 subcutaneous pen injector (Ozempic) valacyclovir 1 gram tablet 1,000 mg PO QDAY #30 tabs 10/04/23 Allergies Allergy/AdvReac Type Severity Reaction Status Date / Time cefdinir Allergy Mild itching, Verified 10/19/23 20:53 hives azithromycin Allergy Unknown Verified 10/19/23 20:53 erythromycin base Allergy Hives Verified 10/19/23 20:53 Penicillins Allergy Hives Verified 10/19/23 20:53 Review of Systems Status of ROS: Reports: 6 or more systems reviewed and unremarkable except as noted in History and below [facility] Medical History Abdominal pain ?R10.9 - Unspecified abdominal pain (ICD-10) Severe pre-eclampsia ?O14.10 - Severe pre-eclampsia, unspecified trimester (ICD-10) Surgical History S/P laparoscopy (05/16/18) ?Z98.890 - Other specified postprocedural states (ICD-10) Status post laparoscopic appendectomy (01/2020) ?Z90.49 - Acquired absence of other specified parts of digestive tract (ICD- 10) History of tonsillectomy and adenoidectomy (1988) ?Z90.89 - Acquired absence of other organs (ICD-10) History of dilation and curettage (10/09/14) ?Z98.890 - Other specified postprocedural states (ICD-10) Family History Aunt Breast cancer Maternal Grandfather Coronary artery disease Maternal Grandfather Diabetes Mother Depression Anxiety Family/Other High cholesterol High blood pressure Social History Narrative: does not exercise, , 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, 4 kids, rarely consumes alcohol, smoker 10/day What is your current living situation?: I presently have a place to live Problems where you live: no known problems In the past 12 months, utilities in danger of being shut off: no In past 12 months, lack of transportation kept you from medical appts, meetings, work, or getting things needed for daily living: no In the past 12 mos, have been you worried that your food would run out before you had money to buy more?: never true In the past 12 mos, the food you bought just didn't last and you didn't have money to buy more?: never true Smoking Status: Current every day smoker What tobacco products do you use: cigarettes Smoking packs per day: 0.5 Smoking cigarettes per day: 10.0 Do you use any of these nicotine containing products: None How often do you have a drink containing alcohol: monthly or less How often do you have six or more drinks on one occasion: Never AUDIT-C Alcohol total score: 1 Non-prescribed substance use: denies use Caffeine: Yes How often does anyone, including family, friends and others, physically hurt you : never How often does anyone, including family, friends and others, insult or talk down to you: rarely How often does anyone, including family, friends and others, threaten you with harm: never How often does anyone, including family, friends and others, scream or curse at you: never Little interest or pleasure in doing things: nearly every day Feeling down, depressed, or hopeless: more than half the days Are you using contraception or practicing any form of control: No service: No Exam Const: Vital Signs, click to edit/add: Vital Signs - 24 hr 10/19/23 20:51 07/24/24 20:51 10/19/23 21:00 Temperature 98.2 F Pulse Rate 89 82 Pulse Rate [Right Pulse Oximeter] 85 Respiratory Rate 20 Blood Pressure Blood Pressure [Ri ght Upper Arm] 157/84 H Pulse Oximetry 99 96 98 Oxygen Delivery Me thod Room Air 10/19/23 21:06 10/19/23 21:15 10/19/23 21:31 Temperature Pulse Rate 82 80 88 Pulse Rate [Right Pulse Oximeter] Respiratory Rate Blood Pressure 176/114 H Blood Pressure [Ri ght Upper Arm] Pulse Oximetry 97 96 96 Oxygen Delivery Me thod 10/19/23 21:33 10/19/23 21:45 10/19/23 22:00 Temperature Pulse Rate 83 89 76 Pulse Rate [Right Pulse Oximeter] Respiratory Rate Blood Pressure 149/110 H Blood Pressure [Ri ght Upper Arm] Pulse Oximetry 98 96 97 Oxygen Delivery Me thod 10/19/23 22:01 10/19/23 22:02 10/19/23 22:15 Temperature Pulse Rate 85 76 72 Pulse Rate [Right Pulse Oximeter] Respiratory Rate Blood Pressure 159/101 H Blood Pressure [Ri ght Upper Arm] Pulse Oximetry 97 98 96 Oxygen Delivery Me thod 10/19/23 22:30 10/19/23 22:32 10/19/23 22:45 Temperature Pulse Rate 78 88 87 Pulse Rate [Right Pulse Oximeter] Respiratory Rate Blood Pressure 155/101 H Blood Pressure [Ri ght Upper Arm] Pulse Oximetry 96 96 97 Oxygen Delivery Me thod 10/19/23 23:00 10/19/23 23:01 Temperature Pulse Rate 93 85 Pulse Rate [Right Pulse Oximeter] Respiratory Rate Blood Pressure 151/97 H Blood Pressure [Ri ght Upper Arm] Pulse Oximetry 94 96 Oxygen Delivery Me thod This 38-year-old female is alert, interactive, no apparent distress. Ambulatory into the ED of her own accord. Pupils are equal round reactive, sclera clear, extraocular muscles intact, no nystagmus. She has symmetrical facial function, speech is normal. Neck supple. Lungs are clear, good air entry, no wheezing crackles, no tachypnea. CV regular rate and rhythm, no murmur, normal S1-S2, no S3-S4. Abdomen is obese but soft or tingly but she is nontender. Strength is 5/5 and symmetric. Normal sensation throughout. Documenting provider has reviewed patient's vital signs: yes Course Course ED Course: Patient in I reviewed neuro imaging recommendations in patients with headaches and underlying migraines. Right now I am reassured by her history, she has no neurologic deficits, she has no fever. We will do some baseline labs to ensure that her glucose is not significantly elevated, check a CBC. Will initiate treatment of her headache with a L of normal saline, 10 mg Reglan, 25 mg Benadryl and 15 mg Toradol. We will see how she responds, check her basic labs, guide clinical course accordingly. This certainly does seem to be in line with a significant migraine headache. Did discuss doing COVID testing which she does decline. There really is no fever, she does not have any other subjective symptoms that are pointing to any evidence of infection. Reevaluation(s) Time of Reevaluation #1: 23:09 Reevaluation #1: Patient is feeling much better. She feels like she has none of the fuzziness, her vision has cleared. We reviewed labs are reassuring, glucose is at 1:23 a.m., certainly not significantly elevated with her diabetes. Her blood pressure is not excessively high here but we did discuss given her history of preeclampsia, she is at risk for hypertension, needs to follow this. Overall her headache is down to a 2 or 3, not completely gone. We did discuss when patient's get severe or bad headaches with her migraines, sometimes can be difficult to make the pain go away completely initially. We will give her another 15 mg IV Toradol as she is feeling much better, allow her to discharge to home to go and rest. Vital Signs Vital signs: Initial Vital Signs Temperature 98.2 F 10/19/23 20:51 Temperature Source Temporal Artery Scan 10/19/23 20:51 Pulse Rate 89 10/19/23 20:51 Respiratory Rate 20 10/19/23 20:51 Blood Pressure 157/84 H 10/19/23 20:51 Blood Pressure Mean 108 H 10/19/23 20:51 Blood Pressure Position Sitting 10/19/23 20:51 Pulse Oximetry 99 10/19/23 20:51 Oxygen Delivery Method Room Air 10/19/23 20:51 Vital Signs Temperature 98.2 F 10/19/23 20:51 Pulse Rate 89 10/19/23 20:51 Respiratory Rate 20 07/24/24 20:51 Blood Pressure 157/84 H 10/19/23 20:51 Pulse Oximetry 99 10/19/23 20:51 Oxygen Delivery Method Room Air 10/19/23 20:51 Temperature 98.2 F 10/19/23 20:51 Pulse Rate 85 10/19/23 23:01 Respiratory Rate 10/19/23 20:51 Blood Pressure 151/97 H 10/19/23 23:01 Pulse Oximetry 96 10/19/23 23:01 Oxygen Delivery Method Room Air 10/19/23 20:51 Medications Administered Medications: Discontinued Medications Generic Name Dose Route Start Last Admin Trade Name Freq PRN Reason Stop Dose Admin Diphenhydramine HCl 25 mg 10/19/23 21:06 10/19/23 21:43 Diphenhydramine 50 Mg/Ml Inj IVP 10/19/23 21:07 25 mg ONCE ONE Administration Sodium Chloride 1,000 mls @ 1,000 mls/hr 10/19/23 21:06 10/19/23 22:24 0.9 % Sodium Chloride 1000 Ml IV 10/19/23 22:05 Infused .Q1H VICKIE Infusion Metoclopramide HCl 10 mg/ 102 mls @ 306 mls/hr 10/19/23 21:06 10/19/23 22:11 Sodium Chloride IVPB 10/19/23 21:07 Infused ONCE ONE Infusion Ketorolac Tromethamine 15 mg 10/19/23 21:06 10/19/23 21:43 Ketorolac 15 Mg/Ml Inj IVP 10/19/23 21:07 15 mg ONCE ONE Administration Medical Decision Making Lab Data Lab results reviewed: Yes I reviewed the patient's lab results Labs: Lab Results 10/19/23 Range/Units 21:30 WBC 5.01 (4.50-11.00) K/uL RBC 5.12 (4.00-5.20) m/uL Hgb 14.6 (12.0-16.0) gm/dL Hct 42.5 (33.0-51.0) % MCV 83 (80-100) fL MCH 29 (26-34) pg MCHC 34 (32-36) gm/dL RDW Coeff of Rosalina 11.9 (11.5-15.5) % Plt Count 252 (140-440) K/uL Neut % (Auto) 52.7 (42.0-72.0) % Lymph % (Auto) 40.7 (20-44) % Mobile % (Auto) 6.4 (0.0-11.0) % Eos % (Auto) 0.0 (0.0-7.0) % Baso % (Auto) 0.0 (0.0-3.0) % Neut # (Auto) 2.64 (1.7-7.0) K/uL Lymph # (Auto) 2.04 (0.90-2.90) K/uL Mobile # (Auto) 0.30 (0.00-0.90) K/UL Eos # (Auto) 0.00 (0.00-0.50) K/uL Baso # (Auto) 0.00 (0.00-0.30) K/uL Abs Immat Gran (auto) 0.01 (0.00-0.30) K/uL Imm/Tot Granulo (auto) 0.2 % Sodium 134 L (135-149) mmol/L Potassium 4.0 (3.6-5.1) mmol/L Chloride 105 (96-114) mmol/L Carbon Dioxide 23 (20-32) mmol/L Anion Gap 6 L (7-15) mEq/L BUN 13 (5-24) mg/dL Creatinine 0.9 (0.5-1.5) mg/dL Estimated Creat Clear 82.42 Estimated GFR 84 ml/min Glucose 123 H (60-115) mg/dL Calcium 9.5 (8.4-10.6) mg/dL C-Reactive Protein 0.6 (0.5-1.0) mg/dL Discharge Plan Discharge Clinical Impression: Migraine Qualifiers: Migraine type: unspecified Patient Disposition: Home, Self-Care Condition: Stable Instructions: Migraine Headache (ED) Additional Instructions: Go home and rest, try to sleep tonight. Drink plenty of fluids as this helps prevent headaches. For any residual headache, can continue with Tylenol or ibuprofen per bottle directions that you normally would. If your headache is worsening and not responding to home remedies, can seek re-evaluation here in the ER. Activity Level: Activity as Tolerated Prescriptions: No Action omeprazole 20 mg capsule,delayed release(DR/EC) 20 mg PO DAILY PRN zolpidem [Ambien] 5 mg tablet 5 mg PO QHS Qty: 1 0RF Rx Instructions: Take prior to sleep study albuterol sulfate 90 mcg/actuation HFA aerosol inhaler 2 puff inhalation Q4-6H PRN (Reason: shortness of breath or wheezing) Qty: 8.5 0RF tranexamic acid 650 mg tablet 1,300 mg PO TID 5 Days Qty: 30 12RF bupropion HCl [Wellbutrin XL] 150 mg tablet extended release 24 hr 150 mg PO QAM Qty: 30 3RF atorvastatin 10 mg tablet 10 mg PO QHS Qty: 90 3RF aspirin 81 mg tablet,delayed release (DR/EC) 81 mg PO QDAY Qty: 90 3RF baclofen 10 mg tablet 10 mg PO TID PRN (Reason: muscle spasm) Qty: 240 12RF lisinopril-hydrochlorothiazide 10-12.5 mg tablet 1 tab PO QDAY Qty: 90 1RF cholecalciferol (vitamin D3) 1,250 mcg (50,000 unit) capsule 1,250 mcg PO QWEEK Qty: 12 3RF ondansetron 4 mg tablet,disintegrating 4 mg PO Q8H PRN (Reason: for nausea/vomiting) Qty: 14 0RF dextroamphetamine-amphetamine 25 mg capsule,extended release 24hr 25 mg PO QAM Qty: 30 0RF Ozempic 2 mg/dose (8 mg/3 mL) pen injector 2 mg subcut QWEEK Qty: 3 12RF valacyclovir 1 gram tablet 1,000 mg PO QDAY Qty: 30 5RF Follow Up/Referrals: Shaneka Harden MD [Primary Care Provider] - Stand Alone Forms: [facility] Info Instructions
[2023-10-19 21:37] LABS: Hematocrit 42.5 % (33.0-51.0); Hemoglobin* 14.6 gm/dL (12.0-16.0); Immature Granulocytes Abs Auto 0.01 K/uL (0.00-0.30); Immature Granulocytes Pct Auto 0.2 %; Lymphocytes Absolute Auto 2.04 K/uL (0.90-2.90); Lymphocytes Percent Auto 40.7 % (20-44); Mean Corpuscular HGB Conc 34 gm/dL (32-36); Mean Corpuscular Hemoglobin 29 pg (26-34); Mean Corpuscular Volume 83 fL (80-100); Monocytes Percent Auto 6.4 % (0.0-11.0); Neutrophils Absolute Auto 2.64 K/uL (1.7-7.0); Neutrophils Percent Auto 52.7 % (42.0-72.0); Platelet Count* 252 K/uL (140-440); RDW Coefficient of Variation % 11.9 % (11.5-15.5); Red Blood Count 5.12 m/uL (4.00-5.20); White Blood Count* 5.01 K/uL (4.50-11.00)
[2023-10-19] MEDS: KETOROLAC 15 MG/ML inj IVP ×2 (21:43→23:17)
[2023-10-19] MEDS: 0.9 % SODIUM CHLORIDE 1000 ml 1,000 ML IV (21:43)
[2023-10-19] MEDS: diphenhydrAMINE 50 MG/ML inj 25 MG IVP (21:43)
[2023-10-19] MEDS: METOCLOPRAMIDE HCL 10 MG in 0.9 % SODIUM CHLORIDE 100 ml 100 ML 306 MG IVPB (21:44)
[2023-10-19 21:46] LABS: Slide Review Reflex No
[2023-10-19 21:49] LABS: Chloride* 105 mmol/L (96-114); Sodium* 134 mmol/L (135-149)
[2023-10-19 21:51] LABS: Creatinine* 0.9 mg/dL (0.5-1.5); Est. Creatinine Clearance* 82.42; Estimated Glomerular Filt Rate 84 ml/min
[2023-10-19 21:52] LABS: Anion Gap 6 mEq/L (7-15); Carbon Dioxide* 23 mmol/L (20-32)
[2023-10-19 21:53] LABS: Blood Urea Nitrogen* 13 mg/dL (5-24); Calcium* 9.5 mg/dL (8.4-10.6); Glucose* 123 mg/dL (60-115)
[2023-10-19 21:55] LABS: C Reactive Protein* 0.6 mg/dL (0.5-1.0)
== END 2023-10-19 23:24 | disposition home or self-care (01) ==
PROVIDERS: Emergency Provider Family Medicine; PCP Family Medicine
DX: G43.909 Migraine, unspecified, not intractable, without status migrainosus (principal)
CPT/HCPCS: 36415; 80048; 85025; 86140; 94761; 96365; 96375; 99284; J1200; J1885; J2765; J7030

== ENCOUNTER 2023-10-27 14:42 | Outpatient (CLI) | payer BC, SELFPAY | END 2023-10-27 14:43 | disposition home or self-care (01) | PROVIDERS: PCP Family Medicine; Visit Provider Family Medicine | DX: Z01.818 Encounter for other preprocedural examination (principal); N92.1 Excessive and frequent menstruation with irregular cycle; R79.89 Other specified abnormal findings of blood chemistry; E11.9 Type 2 diabetes mellitus without complications; G89.29 Other chronic pain | CPT/HCPCS: 80053; 86039; 87086 ==

== ENCOUNTER 2023-11-23 06:03 | Day surgery (SDC) | payer BC, SELFPAY ==
[2023-11-23] VITALS (7 sets, daily range): BP systolic 140–159; BP diastolic 74–112; PULSE 69–93; RESP 16–20; TEMP 36.3–36.6; O2SAT 94–98; BMI 53.8
[2023-11-23] MEDS: LACTATED RINGERS 1000 ML 1,000 ML 100 ML IV (06:10)
[2023-11-23 06:29] LABS: Ur HCG Qualitative* Negative (Negative)
[2023-11-23] MEDS: BUPIVACAINE 0.25% 30 ML INJECTION (07:01)
[2023-11-23] MEDS: SODIUM CHLORIDE 0.9 % (FLUSH) 10 ML SYRINGE IVF (07:03)
--- NOTE | 2023-11-23 08:05 | SUR.OPER ---
EQUIPMENT: [employer] SN: [id number], [id number]
--- NOTE | 2023-11-23 08:20 | P.GYNPRC_ITS ---
Procedure Note Date of procedure: 11/23/23 Will [facility] bill your pro fee for this procedure?: Yes Pre-op diagnosis: Menorrhagia. Morbid obesity. Post-op diagnosis: Same. Procedure: Hysteroscopy. D&C. Hydrothermal endometrial ablation. Anesthesia: MAC and local (Paracervical block.) Complications: None. Surgeon: Tiesha Yousif MD Estimated blood loss (mL): 5 Pathology: specimen obtained, sent to pathology (Endometrial curettings.) Condition: stable Disposition: same day Findings: Normal appearing endometrial cavity and tissue. Procedure Description: After obtaining informed consent, the patient was taken to the operating room where she received monitored anesthesia care. She was prepared and draped in the normal sterile fashion, in the dorsal lithotomy position. An open-sided bivalve speculum was introduced into the vagina and the cervix visualized. The anterior lip of the cervix was grasped with a single-tooth tenaculum for traction. A paracervical block was then administered using a total of 20 mL of a 50/50 mixture of 0.25% Marcaine and 1% lidocaine plain. The uterus was gently sounded. Sound length was 10 cm. The cervix was gently dilated to a #7 Hegar dilator. The endometrial cavity was gently sharply curetted and a sample obtained for pathology. A 4 mm hysteroscope and HTA sheath were then advanced under direct visualization through the cervix into the uterine cavity. Sterile normal saline was used as distending medium. The uterine cavity was carefully inspected with the findings noted above. The HCA sheath was fixed to the tenaculum. The device was activated and no leaks were detected. The circulating fluid was heated to 90? centigrade and the 10 minute treatment cycle initiated. Following the treatment cycle, there was a 90 second cool down cycle. A good ablation was observed visually as the tissue was fully planned. Pictures were taken for documentation purposes. The hysteroscope and HTA sheath were removed. The tenaculum was removed. There was little bleeding from the tenaculum site, which was controlled with direct pressure sponge stick. All instruments were then removed. The patient tolerated the procedure well. Sponge, lap, needle, and instrument counts reported as correct x2. The patient was taken to the recovery room awake in a stable condition. She received 30 mg IV Toradol at the conclusion of the procedure.
--- NOTE | 2023-11-23 08:25 | W.ANESCHARGE ---
Anesthesia Charges Start Date/Time Anesthesia Start Date: 11/23/23 Anesthesia Start Time: 07:23 Stop Date/Time Anesthesia Stop Date: 11/23/23 Anesthesia Stop Time: 08:22
[2023-11-23] MEDS: fentaNYL 100 MCG/2 ML inj 50 MCG IVP (09:08)
[2023-11-23] MEDS: OXYCODONE 5 MG TABLET PO ×2 (09:08→10:32)
[2023-11-23] MEDS: hydrOXYzine pamoate 25 MG CAPSULE PO (09:08)
--- NOTE | 2023-11-23 10:08 | SUR.PHASEII ---
Patient with elevated BP and 8.5/10 pain. Pt up to restroom. Independently ambulated. Unable to void. Bladder scan for 237 ml. Patient states she doesn't feel like she needs to void. Patient told to return to ED if she is unable to urinate within 8 hours.
--- NOTE | 2023-11-23 10:42 | SUR.PHASEII ---
1026: Patient discomfort remains 8.[address] Yousif notified. IV discontinued. VORB Dr Yousif 5 mg Oxycod[address] PO now. Dr. Yousif would like patient to stay longer for observation. Patient notfied and states should would like to go home. She is uncomfortable on the bed and recliner. She would like the additional oxycodone. Patient verbalizes understanding to call Dr. Yousif or go to ER for persistent pain and/or she is unable to urinate within 8 hours.
== END 2023-11-23 10:49 | disposition home or self-care (01) ==
LOC: OR 06:05
PROVIDERS: PCP Family Medicine; Visit Provider Obstetrics & Gynecology
PROC: 0U5B8ZZ Destruction of Endometrium, Via Natural or Artificial Opening Endoscopic (ICD-10-PCS; CPT 58558; principal; 2023-11-23 07:15)
DX: N92.1 Excessive and frequent menstruation with irregular cycle (principal); Z68.43 Body mass index [BMI] 50.0-59.9, adult; E11.9 Type 2 diabetes mellitus without complications; E66.01 Morbid (severe) obesity due to excess calories
CPT/HCPCS: 58563; 00952; 81025; 82962; 88305; A9270; J0665; J1100; J1200; J1630; J2250; J2405; J2704; J3010; J3490; J7120

== ENCOUNTER 2023-12-01 17:56 | Emergency (ER) | payer BC, SELFPAY ==
[2023-12-01 18:18] VITALS: BP 153/92; PULSE 94; RESP 20; TEMP 36.6; O2SAT 97
--- NOTE | 2023-12-01 20:29 | ED.GENADULT ---
HPI - General Adult General Date Seen: 12/01/23 Chief complaint: Dizziness/Vertigo Stated complaint: dizziness Time Seen by Provider: 12/01/23 20:03 Source: patient Mode of arrival: ambulatory Limitations: no limitations History of Present Illness HPI narrative: 38-year-old female with multiple medical problems who comes in with a 12 hour history of vertigo. She has had nausea but no vomiting. She has kept water down today but has really not eaten. The vertigo is triggered by movement of her head, rolling over in bed, standing up. She has not missed any doses of her medications but has not taken her usual medications today yet. She was seen in urgent care yesterday because of pain in her right ear and was diagnosed with a possible ear infection. They told her that her ear was not red but that there was some fluid. She is in the process of getting dental work done on a right-sided molar. For that reason she was started on clindamycin. When she developed the vertigo she called urgent care and was switched to doxycycline but has not taken any doses. She denies any ringing in the ears or hearing loss. She has had no fall or head injury. No drainage from her ears. She has never had vertigo previously she did take a Zofran tablet but it did not help her nausea. Related Data Home Medications ?Medication ?Instructions ?Recorded ?Confirmed omeprazole 20 mg capsule,delayed 20 mg PO DAILY PRN 05/19/23 11/23/23 release Previous Rx's ?Medication ?Instructions ?Recorded cholecalciferol (vitamin D3) 1,250 1,250 mcg PO QWEEK #12 caps 12/05/22 mcg (50,000 unit) capsule albuterol sulfate 90 mcg/actuation 2 puff inhalation Q4-6H PRN 12/13/22 aerosol inhaler shortness of breath or wheezing #8.5 grams zolpidem 5 mg tablet (Ambien) 5 mg PO QHS #1 tab 05/12/23 tranexamic acid 650 mg tablet 1,300 mg (2 x 650 mg) PO TID 5 05/19/23 days #30 tabs aspirin 81 mg tablet,delayed 81 mg PO QDAY #90 tabs 05/24/23 release atorvastatin 10 mg tablet 10 mg PO QHS #90 tabs 05/24/23 valacyclovir 1 gram tablet 1,000 mg PO QDAY #30 tabs 07/09/24 dextroamphetamine-amphetamine ER 25 mg PO QAM #30 caps 10/20/23 25 mg 24hr capsule,extend release lisinopril 20 1 tab PO QDAY #90 tabs 10/27/23 mg-hydrochlorothiazide 12.5 mg tablet propranolol 10 mg tablet 10 mg PO TID PRN anxiety, htn, 10/27/23 palpitations #90 tabs semaglutide 2 mg/dose (8 mg/3 mL) 2 mg (0.75 mL) subcut QWEEK 12 10/27/23 subcutaneous pen injector (Ozempic) weeks #9 mL tizanidine 4 mg capsule 4 mg PO BID PRN muscle spasticity 10/27/23 #180 caps tramadol 50 mg tablet 25 mg (1/2 x 50 mg) PO TID PRN 11/30/23 pain #7 tabs doxycycline hyclate 100 mg tablet 100 mg PO BID 7 days #14 tabs 12/01/23 meclizine 25 mg tablet 25 mg PO QID #20 tabs 12/01/23 ondansetron 8 mg disintegrating 8 mg PO Q8H PRN nausea and 12/01/23 tablet vomiting #20 tabs Allergies Allergy/AdvReac Type Severity Reaction Status Date / Time cefdinir Allergy Mild itching, Verified 11/30/23 17:18 hives azithromycin Allergy Unknown Verified 11/30/23 17:18 erythromycin base Allergy Hives Verified 11/30/23 17:18 Penicillins Allergy Hives Verified 11/30/23 17:18 Review of Systems Narrative: Review of systems is outlined above otherwise noted to be negative. [facility] Medical History (Updated 12/01/23 @ 20:25 by Rodriguez Almeida MD) Shingles ?B02.9 - Zoster without complications (ICD-10) Family history of liver cancer ?Z80.0 - Family history of malignant neoplasm of digestive organs (ICD-10) Abdominal pain ?R10.9 - Unspecified abdominal pain (ICD-10) Severe pre-eclampsia ?O14.10 - Severe pre-eclampsia, unspecified trimester (ICD-10) Surgical History S/P laparoscopy (05/16/18) ?Z98.890 - Other specified postprocedural states (ICD-10) Status post laparoscopic appendectomy (01/2020) ?Z90.49 - Acquired absence of other specified parts of digestive tract (ICD-10) History of tonsillectomy and adenoidectomy (1988) ?Z90.89 - Acquired absence of other organs (ICD-10) History of dilation and curettage (10/09/14) ?Z98.890 - Other specified postprocedural states (ICD-10) Family History Aunt Breast cancer Maternal Grandfather Coronary artery disease Maternal Grandfather Diabetes Mother Depression Anxiety Family/Other High cholesterol High blood pressure Social History Narrative: does not exercise, , 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, 4 kids, rarely consumes alcohol, smoker 10/day What is your current living situation?: I presently have a place to live Problems where you live: no known problems In the past 12 months, utilities in danger of being shut off: no In past 12 months, lack of transportation kept you from medical appts, meetings, work, or getting things needed for daily living: no In the past 12 mos, have been you worried that your food would run out before you had money to buy more?: never true In the past 12 mos, the food you bought just didn't last and you didn't have money to buy more?: never true Smoking Status: Current every day smoker What tobacco products do you use: cigarettes Smoking packs per day: 0.5 Smoking cigarettes per day: 10.0 Do you use any of these nicotine containing products: None How often do you have a drink containing alcohol: monthly or less How often do you have six or more drinks on one occasion: Never AUDIT-C Alcohol total score: 1 Non-prescribed substance use: denies use Caffeine: Yes How often does anyone, including family, friends and others, physically hurt you: never How often does anyone, including family, friends and others, insult or talk down to you: rarely How often does anyone, including family, friends and others, threaten you with harm: never How often does anyone, including family, friends and others, scream or curse at you: never Little interest or pleasure in doing things: nearly every day Feeling down, depressed, or hopeless: more than half the days Are you using contraception or practicing any form of control: No service: No Exam Narrative: Exam Narrative: Vitals noted. HEENT: Conjunctiva clear. Tympanic membranes are pearly white bilaterally. I do not see any sign of ear infection. I can reproduce nystagmus with Hallpike Houston maneuvers, particularly with the left ear down. Posterior pharynx is clear without erythema or exudate. Neck is supple without adenopathy, thyromegaly, carotid bruit. Lungs: Clear to auscultation in all luevano. No wheezes, rales, rhonchi. Heart: Regular rate and rhythm without murmur. Extremities: No cyanosis or edema. Good distal pulses. Skin: No abnormalities noted of the exposed skin. Neurologic: Awake, alert, fully oriented. Neurologic exam is nonfocal. Const: Vital Signs, click to edit/add: Vital Signs - 24 hr 12/01/23 18:18 Temperature 97.8 F Pulse Rate [Right Pulse Oximeter] 94 Respiratory Rate 20 Blood Pressure [Ri ght Upper Arm] 153/92 H Pulse Oximetry 97 Oxygen Delivery Me thod Room Air Course Course ED Course: Patient was seen and examined. I see no indication for labs or imaging. She is given a dose of meclizine 25 mg and lorazepam 1 mg and discharged home in the care of her . The cause and typical course of benign positional vertigo was discussed with her and some patient Education materials were provided. Vital Signs Vital signs: Initial Vital Signs Temperature 97.8 F 12/01/23 18:18 Temperature Source Temporal Artery Scan 12/01/23 18:18 Pulse Rate 94 12/01/23 18:18 Respiratory Rate 20 12/01/23 18:18 Blood Pressure 153/92 H 12/01/23 18:18 Blood Pressure Mean 112 H 12/01/23 18:18 Blood Pressure Position Sitting 12/01/23 18:18 Pulse Oximetry 97 12/01/23 18:18 Oxygen Delivery Method Room Air 12/01/23 18:18 Vital Signs Temperature 97.8 F 12/01/23 18:18 Pulse Rate 94 12/01/23 18:18 Respiratory Rate 20 12/01/23 18:18 Blood Pressure 153/92 H 12/01/23 18:18 Pulse Oximetry 97 12/01/23 18:18 Oxygen Delivery Method Room Air 12/01/23 18:18 Temperature 97.8 F 12/01/23 18:18 Pulse Rate 94 12/01/23 18:18 Respiratory Rate 20 12/01/23 18:18 Blood Pressure 153/92 H 12/01/23 18:18 Pulse Oximetry 97 12/01/23 18:18 Oxygen Delivery Method Room Air 12/01/23 18:18 Medications Administered Medications: Discontinued Medications Generic Name Dose Route Start Last Admin Trade Name Freq PRN Reason Stop Dose Admin Lorazepam 1 mg 12/01/23 20:22 12/01/23 20:40 Lorazepam 1 Mg Tablet PO 12/01/23 20:23 1 mg ONCE ONE Administration Meclizine HCl 25 mg 12/01/23 20:22 12/01/23 20:40 Meclizine Hcl 25 Mg Tablet PO 12/01/23 20:23 25 mg ONCE ONE Administration Discharge Plan Discharge Clinical Impression: Benign paroxysmal positional vertigo Patient Disposition: Home, Self-Care Condition: Stable Instructions: Benign Paroxysmal Positional Vertigo (ED) Additional Instructions: Rest, push fluids, move slowly. Zofran for nausea. Meclizine 25 mg every 6 hours as needed. Follow up in the clinic if no better in 3-4 days. Prescriptions: New meclizine 25 mg tablet 25 mg PO QID Qty: 20 0RF ondansetron 8 mg tablet,disintegrating 8 mg PO Q8H PRN (Reason: nausea and vomiting) Qty: 20 0RF No Action omeprazole 20 mg capsule,delayed release(DR/EC) 20 mg PO DAILY PRN zolpidem [Ambien] 5 mg tablet 5 mg PO QHS Qty: 1 0RF Rx Instructions: Take prior to sleep study albuterol sulfate 90 mcg/actuation HFA aerosol inhaler 2 puff inhalation Q4-6H PRN (Reason: shortness of breath or wheezing) Qty: 8.5 0RF tranexamic acid 650 mg tablet 1,300 mg PO TID 5 Days Qty: 30 12RF atorvastatin 10 mg tablet 10 mg PO QHS Qty: 90 3RF aspirin 81 mg tablet,delayed release (DR/EC) 81 mg PO QDAY Qty: 90 3RF lisinopril-hydrochlorothiazide 20-12.5 mg tablet 1 tab PO QDAY Qty: 90 3RF propranolol 10 mg tablet 10 mg PO TID PRN (Reason: anxiety, htn, palpitations) Qty: 90 3RF tizanidine 4 mg capsule 4 mg PO BID PRN (Reason: muscle spasticity) Qty: 180 3RF Ozempic 2 mg/dose (8 mg/3 mL) pen injector 2 mg subcut QWEEK 84 Days Qty: 9 4RF tramadol 50 mg tablet 25 mg PO TID PRN (Reason: pain) Qty: 7 0RF cholecalciferol (vitamin D3) 1,250 mcg (50,000 unit) capsule 1,250 mcg PO QWEEK Qty: 12 3RF valacyclovir 1 gram tablet 1,000 mg PO QDAY Qty: 30 5RF dextroamphetamine-amphetamine 25 mg capsule,extended release 24hr 25 mg PO QAM Qty: 30 0RF doxycycline hyclate 100 mg tablet 100 mg PO BID 7 Days Qty: 14 0RF Follow Up/Referrals: Shaneka Harden MD [Primary Care Provider] - Stand Alone Forms: [facility] Info Instructions
[2023-12-01] MEDS: LORazepam 1 MG TABLET PO (20:40)
[2023-12-01] MEDS: MECLIZINE HCL 25 MG TABLET PO (20:40)
== END 2023-12-01 20:50 | disposition home or self-care (01) ==
LOC: ED 20:32
PROVIDERS: Emergency Provider Family Medicine; PCP Family Medicine
DX: H81.13 Benign paroxysmal vertigo, bilateral (principal)
CPT/HCPCS: 99282; 99283; A9270

== ENCOUNTER 2024-10-01 08:45 | Outpatient (RCR) | payer BC, SELFPAY | END 2025-01-08 08:30 | disposition home or self-care (01) | PROVIDERS: PCP Family Medicine; Visit Provider Family Medicine | DX: H81.12 Benign paroxysmal vertigo, left ear (principal); R32 Unspecified urinary incontinence; R39.16 Straining to void; R10.20 Pelvic and perineal pain unspecified side; M54.16 Radiculopathy, lumbar region; Z51.89 Encounter for other specified aftercare | CPT/HCPCS: 95992; 97110; 97112; 97140; 97161; 97162; 97535 ==

== ENCOUNTER 2024-10-18 10:28 | Outpatient (CLI) | payer BC, SELFPAY | END 2024-10-18 10:29 | disposition home or self-care (01) | PROVIDERS: PCP Family Medicine; Visit Provider Family Medicine | DX: L50.1 Idiopathic urticaria (principal); I10 Essential (primary) hypertension; E11.9 Type 2 diabetes mellitus without complications | CPT/HCPCS: 80053; 80061; 82043; 82570; 83520 ==

== ENCOUNTER 2024-12-19 14:20 | Emergency (ER) | payer BC, SELFPAY ==
[2024-12-19] VITALS (22 sets, daily range): BP systolic 123–157; BP diastolic 75–92; PULSE 105–128; RESP 22–37; TEMP 36.4–37.1; O2SAT 89–96; BMI 47.0
--- OUTSIDE RECORDS SUMMARY | 2024-12-19 14:22 | XMS_ITS | Clinical Summary ---
Author Organization [facility] Address [address] [place] [id number] Care Team Providers Care Toilet Products Molder Name Role Phone Rodriguez Almeida MD Primary Care Provider + Allergies Active Allergy Reactions Criticality Noted Date Comments Erythromycin Throat Swelling/Closing High 11/10/2006 Other reaction(s): THROAT SWOLLEN Penicillins Hives 11/10/2006 Medications dextroamphetamine -amphetamine (ADDERALL XR) 20 mg Extended-Release capsule Daily 08/16/19 19 Active albuterol HFA (PRO-AIR; VENTOLIN; PROVENTIL) 90 mcg/actuation inhaler Every 4 Hours as needed 01/06/20 21 Active hydroCHLOROthiazi de (HCTZ) 25 mg tablet Take 25 mg by mouth. 04/26/19 23 Active ibuprofen (ADVIL; MOTRIN) 800 mg tablet Three Times A Day as needed 02/25/20 20 Active dextroamphetamine -amphetamine (ADDERALL XR) 25 mg Extended-Release capsule Daily 02/05/20 21 Active dextroamphetamine -amphetamine (ADDERALL) 10 mg tablet TAKE ONE TABLET BY MOUTH ONE TIME DAILY AT 1:00 - 2:00 PM. 12/22/19 22 Active cyclobenzaprine (FLEXERIL) 10 mg tabletIndications :Lumbar radiculopathy Take 1 Tablet (10 mg) by mouth 3 times daily if needed for Muscle Spasm. dont combine with tizanidine 36 Tablet 2 07/15/19 23 Active traMADoL (ULTRAM) 50 mg tabletIndications :Lumbar radiculopathy Take 1 Tablet (50 mg) by mouth every 6 hours if needed for Pain. 18 Tablet 1 07/15/19 23 Active lisinopril-hydroc hlorothiazide (10-12.5 mg) tablet (PRINZIDE; ZESTORETIC) 12/04/19 23 Active HYDROcodone-aceta minophen ([place]) (5-325 mg/tablet)Indicat ions:Lumbar radiculopathy,Lum bar foraminal stenosis,Chronic pain of both hips,Lumbar disc herniation,Neck pain, chronic,Cervical radiculopathy Take 1 Tablet by mouth 3 times daily if needed for Pain. Max acetaminophen dose: 4000mg in 24 hrs. 18 Tablet 03/31/19 24 Active tiZANidine (ZANAFLEX) 4 mg tabletIndications :Lumbar radiculopathy Take 1 Tablet (4 mg) by mouth every 6 hours if needed for Muscle Spasm. 60 Tablet 2 03/31/19 24 Active Active Problems Problem Noted Date Diagnosed Date Morbid obesity 12/13/2014 Lumbar disc herniations 05/29/2014 Lumbar foraminal stenosis 05/29/2014 Trochanteric bursitis of right hip 04/25/2014 Hives 12/10/2010 Resolved Problems Problem Noted Date Diagnosed Date Resolved Date Trochanteric bursitis 05/29/20142014 Lumbar spinal stenosis 04/25/201405/29 Supervision of other normal 05/22/2009 12/10/2010 Immunizations Immunization Administration Dates Next Due Influenza A (H1N1), Inactivated 01/27/2009 Influenza, IIV3 (Age >=3 years) 01/27/2009 MMR 07/12/1997,07/29/1986 Td (Age >=7 Years) 07/12/1997 Tdap 02/07/2013 Family History Medical History Relation Name Comments Diabetes Maternal Grandfather Hypertension Maternal Grandfather Relation Name Status Comments Daughter Alive x2 Maternal Grandfather Son Alive x1 Social History Tobacco Use Types Packs/Day Years Used Date Smoking Tobacco: Some Days Cigarettes Last attempted to quit: 10/03/2014 Smokeless Tobacco: Never Tobacco Cessation:Ready to Q uit: No; Counseling Given: Yes Alcohol Use Standard Drinks/Week Comments Yes 0 (1 standard drink = 0.6 oz pur e alcohol) occaional PHQ-2 Answer Date Recorded PHQ-2 Score 0 05/27/2018 Social Connections Answer Date Recorded Frequency of Communication with Friends and Fami ly Not on file 03/28/2021 Financial Resource Strain Answer Date R ecorded Difficulty of Paying Living Expenses Not on file 03/28/2021 Difficulty of Paying Living Expenses Not on file 03/28/2021 Comments No Sex and Gender Information Value Date Recorded Sex Assigned at Not on file Legal Sex Female 5:18 AM HOG SCALDER Gender Identity Not on file Sexual Orientation Not on file Obstetrics History Para Term AB IAB SAB Ectopic Multiple Livin g Live Births 3 3 3 3 3 Date Outcome GA Total Labor Labor/2nd/3rd Weight Sex Type Anes PTL Sydney A1 A5 Name Clin 2005 Term 14h 00m/ 3.91 kg (8 lb 10 oz) F Vag Livin g Bonnie Coleman 2007 Term 39w 0d 2h 00m/ 3.63 kg (8 lb) M Vag Livin g Mark Coleman Comments:induced - PG gel 2009 Term 39w 0d 39h 05m/ 3.83 kg (8 lb 7 oz) F Vag Livin g Neeta Jared Comments:induced Last Filed Vital Signs Vital Sign Reading Time Taken Comments Blood Pressure 162/83 03/31/2023 9:08 AM HOG SCALDER Pulse 93 03/31/2023 9:08 AM HOG SCALDER Temperature 36.9 C (98.4 F) 03/31/2023 9:08 AM HOG SCALDER Respiratory Rate - - Oxygen Saturation 96% 03/31/2023 9:08 AM HOG SCALDER Inhaled Oxygen Concentration - - Weight 171.5 kg (378 lb) 03/31/2023 9:08 AM HOG SCALDER shoes on Height 170.5 cm (5' 7.13) 12/27/2017 11:17 AM C DT Body Mass Index 58.98 12/27/2017 11:17 AM CDT Plan of Treatment Health Maintenance Due Date Last Done Comments Hepatitis C screening for age 18-79 2003 Hepatitis B series for 19+ (1 of 3 - 19+ 3-dose series) 2004 Pneumococcal series for age 6-49 (1 of 2 - PCV) 2004 BMI (ht and wt on same day) for age 18+ 12/27/2018 12/27/2017, 07/12/2016, 12/12/2015, Additional history exists Depression screening for age 12+ 12/27/2018 12/27/2017, 12/12/2015 Tetanus booster 02/07/2023 02/07/2013, 07/12/1997 COVID-19 vaccine series ( season) 2024 Influenza Vaccine (#1) 2024 01/27/2009 Pap test for age 21-65 08/30/2025 , 08/30/2022, 04/12/2013, Additional history exists RSV vaccine for adults or (1 - 1-dose 75+ series) 2060 HIV for age 15-65 Completed 10/31/2008, 11/10/2006 HPV series for age 9-45 Addressed 07/15/19 12 (Declined), 12/10/2010 (Declined), 05/29/2010 (Declined) Overridden with the intention of not completing the topic Procedures Procedure Name Priority Date/Time Associated Diagnosis Comments HVAC ESTIMATOR THIN PREP PAP SCREEN IMAGED Routine 08/30/2022 10:30 AM CDT ANTI HIV 1/2 Routine 10/31/2008 5:47 PM CDT Other Malaise and Fatigue from Last 3 Months or Most Recently Relevant to Health Maintenance Results * HVAC ESTIMATOR THIN PREP PAP SCREEN IMAGED (08/30/2022 10:30 AM CDT) Case Report Gynecologic Cytology Report Case: [id number] Authorizing Provider: Maya Yousif MD Collected: 08/30/2022 1030 Ordering Location: [facility] Received: 08/31/2022 1807 First Screen: Susanna Winslow Specimen: HVAC ESTIMATOR ThinPrep Vial Screening, Cervical/Vaginal 10/06/2022 3:17 PM CDT [facility] INTERPRETATION/ RESULT NEGATIVE FOR INTRAEPITHELIAL LESION OR MALIGNANCY (NIL) (none) 10/06/2022 3:17 PM CDT [facility] at 1517 CDT ORGANISM(S) Shift in dmitriy suggestive of bacterial vaginosis 10/06/2022 3:17 PM CDT [facility] SPECIMEN ADEQUACY Satisfactory for evaluation Endocervical component present 10/06/2022 3:17 PM CDT [facility] HPV REQUEST HPV and PAP 10/06/2022 3:17 PM CDT [facility] Date of LMP 08/12/2022 10/06/2022 3:17 PM CDT [facility] Last Pap Date 04/12/2013 10/06/2022 3:17 PM CDT [facility] Last Pap Result NIL 3:17 PM CDT [facility] Abnormal Pap or [place] Bx in last 5 years No 10/06/2022 3:17 PM CDT [facility] Menstrual Status Ablation 10/06/2022 3:17 PM CDT [facility] [place] Bx Done Today No 10/06/2022 3:17 PM CDT [facility] Additional Information 10/06/2022 3:17 PM CDT [facility] Comment: Interpreted at [facility] - [address] [place] [id number] Automated Review Successful 10/06/2022 3:17 PM CDT [facility] Comment:Specimen processed s uccessfully by automated fire control mechanic device, ThinPrep Imaging System, [employer] ANCILLARY TESTING HVAC ESTIMATOR HPV Ordered, Please see separate report 10/06/2022 3:17 PM CDT [facility] Note The pap test is a screening technique, not a diagnostic procedure. It is used primarily to screen for squamous cancers and precursor lesions. Published studies have shown that it is subject to both false negative and false positive results. The pap test should not be used as the sole means to diagnose or exclude pre-malignant and malignant lesions. 10/06/2022 3:17 PM CDT [facility] Other (Cervical/Vagina l) 08/30/2022 10:30 AM CDT 08/31/2022 6:07 PM CDT Maya Yousif MD PATHOLOGY/CYTOLOGY Final R esult [facility] [address] [place] [address], [place] * HIV (10/31/2008 5:47 PM CDT) ANTI HIV 1/2 Non-reacti ve [facility] Blood specimen (specimen) BLOOD SPECIMEN / Unknown 10/31/2008 5:47 PM CDT 10/31/2008 5:27 PM CDT us Chelsie Huggins MD SEND OUTS Fi nal Result [facility] INTERNAL ZIP [id number] [id number] from Last 3 Months or Most Recently Relevant to Health Maintenance Insurance [facility] NON-MS-ITS Care Teams Toilet Products Molder Relationship Specialty Start Date End Date Rodriguez Almeida MD [address] [place] [address] PCP - General Family Practice 03/31/23
--- NOTE | 2024-12-19 14:37 | ED_ITS ---
HPI - General Adult General Time Seen by Provider: 14:37 <Shania Martinez MD - Last Filed: 12/24/24 20:37> Date Seen: 12/19/24 <Shania Martinez MD - Last Filed: 12/24/24 20:37> Chief complaint: Cough <Shania Martinez MD - Last Filed: 12/24/24 20:37> Stated complaint: cough, trouble breathing, lungs hurt, headaches <Shania Martinez MD - Last Filed: 12/24/24 20:37> Time Seen by Provider: 12/19/24 14:22 <Shania Martinez MD - Last Filed: 12/24/24 20:37> Source: patient, RN notes reviewed and old records reviewed <Shania Cortes MD - Last Filed: 12/24/24 20:37> Mode of arrival: ambulatory <Shania Martinez MD - Last Filed: 12/24/24 20:37> Limitations: no limitations <Shania Martinez MD - Last Filed: 12/24/24 20:37> History of Present Illness HPI narrative: This 39yo female is coming into the ED with concerns of coughing, trouble breathing, pain in her lungs, ongoing headaches. She has been sick over 3 weeks. Initially went to on 12/07, had wheezing and received a duoneb. Her chest x-ray and CBC were normal at that time. She also had a triple viral swab. She received a 5 day course of prednisone. She went back to yesterday with ongoing symptoms, did get a duoneb, albuterol was refilled. She states that she doesn't have asthma, she is a chronic smoker. She also has lupus and is on azathioprine. She was given doxycycline and prednisone again, has taken 2 doses. She just feels worse, difficulty breathing, coughing. She states she d id not sleep last night. Her oxygen saturation was reportedly going lower. <Shania Martinez MD - Last Filed: 12/24/24 20:37> Related Data Home medications: Home Medications ?Medication ?Instructions ?Recorded ?Confirmed azathioprine 50 mg tablet 50 mg PO BID 12/07/24 Previous Rx's ?Medication ?Instructions ?Recorded duloxetine 20 mg capsule,delayed 20 mg PO QDAY #30 cap s 09/24/24 release (Cymbalta) semaglutide 2 mg/dose (8 mg/3 mL) 2 mg (0.75 mL) subcu t QWEEK #3 mL 09/24/24 subcutaneous pen injector (Ozempic) aspirin 81 mg tablet,delayed 81 mg PO QDAY #90 tabs release cholecalciferol (vitamin D3) 1,250 1,250 mcg PO QWEEK #12 caps 10/18/24 mcg (50,000 unit) capsule hydrochlorothiazide 12.5 mg tablet 12.5 mg PO QAM #90 tabs 10/18/24 lisinopril 20 mg tablet 20 mg PO QDAY #90 tabs 10/18 omeprazole 20 mg capsule,delayed 20 mg PO DAILY #90 ca ps 10/18/24 release ondansetron 8 mg disintegrating 8 mg PO Q8H PRN for tablet nausea/vomiting #20 tabs propranolol 10 mg tablet 10 mg PO TID PRN anxiety, ht n, 10/18/24 palpitations #180 tabs valacyclovir 1 gram tablet 1,000 mg PO QDAY #30 tabs 0 10/18/24 tizanidine 4 mg tablet 4 mg PO BID PRN muscle spast icity 10/19/24 #30 tabs dextroamphetamine-amphetamine ER 25 mg PO QAM #30 caps 12/03/24 25 mg 24hr capsule,extend release albuterol sulfate 90 mcg/actuation 2 puff inhalation Q 6H PRN 12/18/24 aerosol inhaler shortness of breath or wheez ing #6.7 grams doxycycline hyclate 100 mg capsule 100 mg PO BID 10 da ys #20 caps 12/18/24 prednisone 20 mg tablet See Rx Instructions PO QDAY Cough 12/18/24 #16 tabs codeine 10 mg-guaifenesin 100 mg/5 5 - 10 ml PO HS PRN #120 mL 12/19/24 mL oral liquid (Guaifenesin AC) ipratropium 0.5 mg-albuterol 3 mg 3 ml inhalation QID PRN #90 mL 12/19/24 (2.5 mg base)/3 mL nebulization soln nebulizer and compressor #1 ea 12/19/24 <Shania Martinez MD - Last Filed: 12/24/24 20:37> Allergies/adverse reactions: Allergies Allergy/AdvReac Type Severity Reaction Status Date / Time cefdinir Allergy Mild itching, Verified 12/19/24 17:53 hives azithromycin Allergy Unknown Verified 12/19/24 17:53 erythromycin base Allergy Hives Verified 12/19/24 17:53 Penicillins Allergy Hives Verified 12/19/24 17:53 <Shania Martinez MD - Last Filed: 12/24/24 20:37> Review of Systems Status of ROS: Reports: 6 or more systems reviewed and unremarkable except as noted in History and below <Shania Martinez MD - Last Filed: 12/24/24 20:37> PFSH PFS Medical History: Medical History Vitamin D deficiency ?E55.9 - Vitamin D deficiency, unspecified (ICD-10) Urinary incontinence ?R32 - Unspecified urinary incontinence (ICD-10) Shingles ?B02.9 - Zoster without complications (ICD-10) Family history of liver cancer ?Z80.0 - Family history of malignant neoplasm of digestive organs (ICD-10) Severe pre-eclampsia ?O14.10 - Severe pre-eclampsia, unspecified trimester (ICD-10) <Shania Martinez MD - Last Filed: 12/24/24 20:37> Surgical History: Surgical History Status post endometrial ablation (11/23/23) ?Z98.890 - Other specified postprocedural states (ICD-10) S/P laparoscopy (05/16/18) ?Z98.890 - Other specified postprocedural states (ICD-10) Status post laparoscopic appendectomy (01/2020) ?Z90.49 - Acquired absence of other specified parts of digestive tract (ICD- 10) History of tonsillectomy and adenoidectomy (1988) ?Z90.89 - Acquired absence of other organs (ICD-10) History of dilation and curettage (10/09/14) ?Z98.890 - Other specified postprocedural states (ICD-10) <Shania Martinez MD - Last Filed: 12/24/24 20:37> Family History: Family History Aunt Breast cancer Maternal Grandfather Coronary artery disease Heart disease Maternal Grandfather Diabetes Mother Depression Anxiety Family/Other High cholesterol High blood pressure Maternal Grandmother Heart disease Daughter Thyroid disease Paternal Grandmother Liver disease <Shania Martinez MD - Last Filed: 12/24/24 20:37> Social History: Social History Narrative: does not exercise, , 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, 4 kids, rarely consumes alcohol, smoker 10/day What is your current living situation?: I presently have a place to live Problems where you live: no known problems In the past 12 months, utilities in danger of being shut off: no In past 12 months, lack of transportation kept you from medical appts, meetings, work, or getting things needed for daily living: no In the past 12 mos, have been you worried that your food would run out before you had money to buy more?: never true In the past 12 mos, the food you bought just didn't last and you didn't have money to buy more?: never true Smoking Status: Current every day smoker What tobacco products do you use: c gibran Smoking packs per day: 0.5 Smoking cigarettes per day: 10.0 Do you use any of these nicotine containing products: None How often do you have a drink containing alcohol: monthly or less How often do you have six or more drinks on one occasion: Never AUDIT-C Alcohol total score: 1 Non-prescribed substance use: denies use Caffeine: Yes How often does anyone, including family, friends and others, physically hurt you : never How often does anyone, including family, friends and others, insult or talk down to you: rarely How often does anyone, including family, friends and others, threaten you with harm: never How often does anyone, including family, friends and others, scream or curse at you: never Are you using contraception or practicing any form of control: No service: No Health Related Social Needs: Other personal risk factors, not elsewhere classified (Z91.89) <Shania Martinez MD - Last Filed: 12/24/24 20:37> Exam Const: Vital Signs, click to edit/add: Vital Signs - 24 hr 12/19/24 14:33 12/19/24 14:44 12/19/24 14:55 Temperature 97.6 F Pulse Rate 110 H Pulse Rate [Pulse Oximeter] 126 H Respiratory Rate 28 H 24 Blood Pressure Blood Pressure [Ri ght Forearm] 141/92 H Pulse Oximetry 93 90 96 Oxygen Delivery Me thod Room Air 12/19/24 15:00 12/19/24 15:15 12/19/24 15:25 Temperature 97.9 F Pulse Rate 116 H 119 H 111 H Pulse Rate [Pulse Oximeter] Respiratory Rate 37 H 34 H 25 H Blood Pressure 123/83 Blood Pressure [Ri ght Forearm] Pulse Oximetry 92 93 94 Oxygen Delivery Me thod 12/19/24 15:26 12/19/24 15:30 12/19/24 15:45 Temperature Pulse Rate 108 H 114 H 126 H Pulse Rate [Pulse Oximeter] Respiratory Rate 24 23 26 H Blood Pressure Blood Pressure [Ri ght Forearm] Pulse Oximetry 95 95 93 Oxygen Delivery Me thod 12/19/24 16:00 12/19/24 16:30 12/19/24 16:38 Temperature 98.8 F Pulse Rate 128 H 117 H 121 H Pulse Rate [Pulse Oximeter] Respiratory Rate 24 31 H 35 H Blood Pressure 123/75 Blood Pressure [Ri ght Forearm] Pulse Oximetry 91 89 95 Oxygen Delivery Me thod 12/19/24 17:00 12/19/24 17:02 12/19/24 17:15 Temperature Pulse Rate 121 H 120 H 120 H Pulse Rate [Pulse Oximeter] Respiratory Rate 29 H 27 H Blood Pressure 140/77 H Blood Pressure [Ri ght Forearm] Pulse Oximetry 91 91 92 Oxygen Delivery Me thod 12/19/24 17:45 12/19/24 17:45 12/19/24 18:18 Temperature 97.7 F Pulse Rate 115 H Pulse Rate [Pulse Oximeter] 118 H Respiratory Rate 36 H 22 Blood Pressure 157/89 H 153/81 H Blood Pressure [Ri ght Forearm] Pulse Oximetry 93 93 Oxygen Delivery Me thod Room Air 12/19/24 18:45 12/19/24 19:00 12/19/24 19:15 Temperature Pulse Rate 113 H 112 H 112 H Pulse Rate [Pulse Oximeter] Respiratory Rate 26 H 29 H 34 H Blood Pressure Blood Pressure [Ri ght Forearm] Pulse Oximetry 91 92 93 Oxygen Delivery Me thod 12/19/24 20:09 12/19/24 20:10 Temperature Pulse Rate 105 H 108 H Pulse Rate [Pulse Oximeter] Respiratory Rate 28 H Blood Pressure 141/78 H Blood Pressure [Ri ght Forearm] Pulse Oximetry 93 93 Oxygen Delivery Me thod This 39-year-old female is ambulatory into the ED of her own accord. She is seen in exam room 3, sclera clear, pupils equal round reactive, wearing a mask. Neck is thick but note no adenopathy. Lungs are tight, have end-expiratory wheezing, somewhat distant breath sounds. CV regular rhythm but fast, cannot hear a murmur but she is tachycardic. Abdomen is obese. Abdomen is nontender. No lower extremity edema. <Shania Martinez MD - Last Filed: 12/24/24 20:37> Vital Signs, click to edit/add: Vital Signs - 24 hr 12/19/24 14:33 12/19/24 14:44 12/19/24 14:55 Temperature 97.6 F Pulse Rate 110 H Pulse Rate [Pulse Oximeter] 126 H Respiratory Rate 28 H 24 Blood Pressure Blood Pressure [Ri ght Forearm] 141/92 H Pulse Oximetry 93 90 96 Oxygen Delivery Me thod Room Air 12/19/24 15:00 12/19/24 15:15 12/19/24 15:25 Temperature 97.9 F Pulse Rate 116 H 119 H 111 H Pulse Rate [Pulse Oximeter] Respiratory Rate 37 H 34 H 25 H Blood Pressure 123/83 Blood Pressure [Ri ght Forearm] Pulse Oximetry 92 93 94 Oxygen Delivery Me thod 12/19/24 15:26 12/19/24 15:30 12/19/24 15:45 Temperature Pulse Rate 108 H 114 H 126 H Pulse Rate [Pulse Oximeter] Respiratory Rate 24 23 26 H Blood Pressure Blood Pressure [Ri ght Forearm] Pulse Oximetry 95 95 93 Oxygen Delivery Me thod 12/19/24 16:00 12/19/24 16:30 12/19/24 16:38 Temperature 98.8 F Pulse Rate 128 H 117 H 121 H Pulse Rate [Pulse Oximeter] Respiratory Rate 24 31 H 35 H Blood Pressure 123/75 Blood Pressure [Ri ght Forearm] Pulse Oximetry 91 89 95 Oxygen Delivery Me thod 12/19/24 17:00 12/19/24 17:02 12/19/24 17:15 Temperature Pulse Rate 121 H 120 H 120 H Pulse Rate [Pulse Oximeter] Respiratory Rate 29 H 27 H Blood Pressure 140/77 H Blood Pressure [Ri ght Forearm] Pulse Oximetry 91 91 92 Oxygen Delivery Me thod 12/19/24 17:45 12/19/24 17:45 12/19/24 18:18 Temperature 97.7 F Pulse Rate 115 H Pulse Rate [Pulse Oximeter] 118 H Respiratory Rate 36 H 22 Blood Pressure 157/89 H 153/81 H Blood Pressure [Ri ght Forearm] Pulse Oximetry 93 93 Oxygen Delivery Me thod Room Air 12/19/24 18:45 12/19/24 19:00 12/19/24 19:15 Temperature Pulse Rate 113 H 112 H 112 H Pulse Rate [Pulse Oximeter] Respiratory Rate 26 H 29 H 34 H Blood Pressure Blood Pressure [Ri ght Forearm] Pulse Oximetry 91 92 93 Oxygen Delivery Me thod 12/19/24 20:09 12/19/24 20:10 Temperature Pulse Rate 105 H 108 H Pulse Rate [Pulse Oximeter] Respiratory Rate 28 H Blood Pressure 141/78 H Blood Pressure [Ri ght Forearm] Pulse Oximetry 93 93 Oxygen Delivery Me thod <Kunal Jeong MD - Last Filed: 12/19/24 20:35> Documenting provider has reviewed patient's vital signs: yes <Shania Martinez MD - Last Filed: 12/24/24 20:37> Course Course ED Course: Will obtain EKG, have patient on pulse oximetry. She needs a DuoNeb, will assess her after that. Will start with a portable chest x-ray, has not had a chest x-ray since March 08. Will do full complement of labs. Nursing staff did collect triple viral swab on arrival which is pending. Will also consider other etiologies or confounding problems like thromboembolic disease, have a D-dimer pending. If this is positive, patient will need chest CT PE protocol. <Shania Martinez MD - Last Filed: 12/24/24 20:37> Reevaluation(s) Time of Reevaluation #1: 15:15 <Shania Martinez MD - Last Filed: 12/24/24 20:37> Reevaluation #1: Patient's nurse to come back, she did get a DuoNeb, still having increased work of breathing. Her lactate did come back elevated, have ordered a L of IV fluids. Will also give her 125 mg IV Solu-Medrol. Nursing staff has called to get her chest x-ray done JUAN. <Shania Martinez MD - Last Filed: 12/24/24 20:37> Time of Reevaluation #2: 15:26 <Shania Martinez MD - Last Filed: 12/24/24 20:37> Reevaluation #2: Patient had improved lung sounds, definitely diminished wheezing, could hear more rhonchi. I do think she would benefit from doing some stacked nebs. Have ordered to albuterol nebs to do stacked. <Shania Martinez MD - Last Filed: 12/24/24 20:37> Time of Reevaluation #3: 15:52 <Shania Martinez MD - Last Filed: 12/24/24 20:37> Reevaluation #3: Patient has much improved aeration of her lungs, lung sounds are much better, she has no wheezing, no crackles in aeration is much better. She is quite jittery, we discussed this is likely from the combination of the nebs and possibly even the Solu-Medrol I gave her. I have talked to her that her chest x-ray is negative, white count is mildly elevated which could be from infection and or steroid administration which she started yesterday orally. We also reviewed that she was a bit dry, her IV fluids are nearly done. We are going to observe her for a little while longer here but I think she will be discharged to home. Her D-dimer is negative, she is oxygenating well. Will have her stand the oral prednisone and the doxycycline. We have discussed that if she did have some component of sinusitis, doxycycline is a good drug for this. Do not feel that we need to do sinus imaging but would rather she complete the antibiotic. I think just taking a doxycycline at this time is safest. It avoids radiation to her thyroid and brain. I will send a nebulizer for her, have her do DuoNebs. We discussed she can use her albuterol between. Once she is improved in about 4-6 weeks, she should be sent for full formal pulmonary function tests. Have also discussed the need for smoking cessation. Her glucose was elevated, she is known to be diabetic. <Shania Martinez MD - Last Filed: 12/24/24 20:37> Additional Reevaluation(s): 4:31 p.m.: Nursing staff just prior to my leaving did advise me that patient really was feeling miserable, did sign her out to Dr. Jeong. She is re-evaluated, she had a brief period of 89% pulse oximetry with a good waveform but recovered into the low 90s. She has end-expiratory wheezing and rhonchi again. We have discussed as her ER team about giving her a 2 L of fluids, we are going to recheck the lactate just to make sure that it is improving. I really do not believe this patient is septic up to the point of this time in her evaluation but do think she warrants ongoing monitoring. Have discussed with her that there is not going to be a quick fix and is going to take some time for her to feel better, she has been sick for 3 weeks. She did get some Toradol for her headache, this can be monitored as well. She will be given another DuoNeb, will be ordered by Dr. Jeong. <Shania Martinez MD - Last Filed: 12/24/24 20:37> Consultations Consultation #1: Patient signed out to Dr. Jeong at shift change-4:00 p.m.. I recheck the patient. She still had a persistent sinus tachycardia in the 1 teens up to 120. Blood pressure was in the low-normal range. Mental status normal. Lung sounds was still tight and wheezy. I ordered another DuoNeb. Oxygen saturations were in the low 90s. We did briefly see the patient tip 89% temporarily but the rest of her ER course she remained in the 90s. Will also order fluids for persistent tachycardia recheck lactic acid which was 3.1 After neb still tight and wheezy. Still coughing but definitely lungs are more clear. After bolus, heart rate now around 110. Still tachycardic with lower. Patient tolerating p.o. fluids. Repeat lactic acid down to 2.9. With persistent coughing and tachycardia, although D-dimer was negative, CT PE was ordered to make sure there was no PE or other findings such as an occult pneumonia that was not seen on her chest x-ray CT scan of her chest showed IMPRESSION: 1. Limited evaluation of the pulmonary arterial tree due to artifact. No definite pulmonary embolism appreciated through the segmental level. 2. Patchy bibasilar consolidation, likely in part due to atelectasis, however superimposed developing infectious process is not definitively excluded in the appropriate clinical context. Scattered bilateral multilobar ground-glass attenuation likely related to air trapping and/or small airway disease. I recheck the patient. Still little bit wheezy. Magnesium sulfate administered. Rechecked again. Wheezing is still present but much improved. Air movement is better. Sats consistently 90-1 above. Heart rate down to 104. She is able to talk without coughing. Mother at her bedside. Had a long discussion with the patient and her mother about disposition and management. We discussed possible hospitalization. I am on the fence. On the 1 hand she is probably okay to go home because she is per breathing is better, sats have been normal throughout, heart rate is down, lactic acid is improving, blood pressure is up. She is feeling and looking much better. On the other hand, factors that might favor hospitalization would be the fact that she has been sick for about 3 weeks. She is immunosuppressed with diabetes and azathioprine. She has required 4 nebulizers as well as IV steroids here in the ER to get her lungs to this point. Overall, the patient prefers discharge home. Plan for home management would be: 1 continue prednisone next dose tomorrow morning. 2 Continue nebs. She will be able to use her family's nebulizer machine at home. She will take her tubing home with her. She supplied with an [employer] prescription for DuoNebs. Use every 2-4 hours if needed 3 Continue doxycycline since we cannot rule out a bacterial pathogen. 4 Discussed with the patient that if she has any clinical worsening she needs to return to the ER right away. <Kunal Jeong MD - Last Filed: 12/19/24 20:35> Vital Signs Vital signs: Initial Vital Signs Temperature 97.6 F 12/19/24 14:33 Temperature Source Temporal Artery Scan 12/19/24 14:33 Pulse Rate 126 H 12/19/24 14:33 Respiratory Rate 28 H 12/19/24 14:33 Blood Pressure 141/92 H 12/19/24 14:33 Blood Pressure Mean 108 H 12/19/24 14:33 Pulse Oximetry 93 12/19/24 14:33 Oxygen Delivery Method Room Air 12/19/24 14:33 Vital Signs Temperature 97.6 F 12/19/24 14:33 Pulse Rate 126 H 12/19/24 14:33 Respiratory Rate 28 H 12/19/24 14:33 Blood Pressure 141/92 H 12/19/24 14:33 Pulse Oximetry 93 12/19/24 14:33 Oxygen Delivery Method Room Air 12/19/24 14:33 Temperature 97.7 F 12/19/24 17:45 Pulse Rate 108 H 12/19/24 20:10 Respiratory Rate 28 H 12/19/24 20:10 Blood Pressure 141/78 H 12/19/24 20:09 Pulse Oximetry 93 12/19/24 20:10 Oxygen Delivery Method Room Air 12/19/24 17:45 <Shania Martinez MD - Last Filed: 12/24/24 20:37> Initial Vital Signs Temperature 97.6 F 12/19/24 14:33 Temperature Source Temporal Artery Scan 12/19/24 14:33 Pulse Rate 126 H 12/19/24 14:33 Respiratory Rate 28 H 12/19/24 14:33 Blood Pressure 141/92 H 12/19/24 14:33 Blood Pressure Mean 108 H 12/19/24 14:33 Pulse Oximetry 93 12/19/24 14:33 Oxygen Delivery Method Room Air 12/19/24 14:33 Vital Signs Temperature 97.6 F 12/19/24 14:33 Pulse Rate 126 H 12/19/24 14:33 Respiratory Rate 28 H 12/19/24 14:33 Blood Pressure 141/92 H 12/19/24 14:33 Pulse Oximetry 93 12/19/24 14:33 Oxygen Delivery Method Room Air 12/19/24 14:33 Temperature 97.7 F 12/19/24 17:45 Pulse Rate 108 H 12/19/24 20:10 Respiratory Rate 28 H 12/19/24 20:10 Blood Pressure 141/78 H 12/19/24 20:09 Pulse Oximetry 93 12/19/24 20:10 Oxygen Delivery Method Room Air 12/19/24 17:45 <Kunal Jeong MD - Last Filed: 12/19/24 20:35> Medications Administered Medications: Discontinued Medications Generic Name Dose Route Start Last Admin Trade Name Freq PRN Reason Stop Dose Admin Albuterol 2.5 mg 12/19/24 15:24 12/19/24 15:29 Albuterol Sulfate 2.5 Mg/[address] 12/19/24 15:25 2.5 mg ONCE ONE Administration Albuterol 2.5 mg 12/19/24 15:24 12/19/24 15:29 Albuterol Sulfate 2.5 Mg/[address] 12/19/24 15:25 2.5 mg ONCE ONE Administration Albuterol/Ipratropium 1 [facility] 12/19/24 14:45 12/19/24 14:51 Iprat-Albut 0.5-2.5 Mg/3 Ml [facility] 12/19/24 14:46 1 [facility] ONCE ONE Administration Albuterol/Ipratropium 1 [facility] 12/19/24 16:57 12/19/24 16:50 Iprat-Albut 0.5-2.5 Mg/3 Ml [facility] 12/19/24 16:58 1 neb ONCE ONE Administration Doxycycline Hyclate 100 mg 12/19/24 19:12 12/19/24 19:20 Doxycycline Hyclate 100 Mg PO 12/19/24 19:13 100 mg ONCE ONE Administration Hydromorphone HCl 0.5 mg 12/19/24 18:18 12/19/24 18:23 Hydromorphone 0.5 Mg/0.5 Ml Inj IVP 0.5 mg Q1H PRN Administration Pain Sodium Chloride 1,000 mls @ 500 mls/hr 12/19/24 15:10 12/19/24 15:53 0.9 % Sodium Chloride 1000 Ml IV 12/19/24 17:09 Infused .Q2H VICKIE Infusion Sodium Chloride 1,000 mls @ 1,000 mls/hr 12/19/24 16:30 12/19/24 17:48 0.9 % Sodium Chloride 1000 Ml IV 12/19/24 17:29 Infused .Q1H VICKIE Infusion Magnesium Sulfate 2 gm in 50 mls @ 150 mls/hr 12/19/24 19:13 12/19/24 20:10 Magnesium Iv IVPB 12/19/24 19:32 Infused ONCE ONE Infusion Ketorolac Tromethamine 15 mg 12/19/24 15:55 12/19/24 16:02 Ketorolac 15 Mg/Ml Inj IVP 12/19/24 15:56 15 mg ONCE ONE Administration Methylprednisolone Sodium Succinate 125 mg 12/19/24 15:14 12/19/24 15:20 Methylprednisolone Sod Succ 62.5 Mg/Ml (125) IVP 12/19/24 15:15 125 mg ONCE ONE Administration <Shania Martinez MD - Last Filed: 12/24/24 20:37> Discontinued Medications Generic Name Dose Route Start Last Admin Trade Name Freq PRN Reason Stop Dose Admin Albuterol 2.5 mg 12/19/24 15:24 12/19/24 15:29 Albuterol Sulfate 2.5 Mg/3 Ml Vial.Neb [facility] 12/19/24 15:25 2.5 mg ONCE ONE Administration Albuterol 2.5 mg 12/19/24 15:24 12/19/24 15:29 Albuterol Sulfate 2.5 Mg/[address] 12/19/24 15:25 2.5 mg ONCE ONE Administration Albuterol/Ipratropium 1 [facility] 12/19/24 14:45 12/19/24 14:51 Iprat-Albut 0.5-2.5 Mg/3 Ml [facility] 12/19/24 14:46 1 neb ONCE ONE Administration Albuterol/Ipratropium 1 [facility] 12/19/24 16:57 12/19/24 16:50 Iprat-Albut 0.5-2.5 Mg/3 Ml [facility] 12/19/24 16:58 1 neb ONCE ONE Administration Doxycycline Hyclate 100 mg 12/19/24 19:12 12/19/24 19:20 Doxycycline Hyclate 100 Mg PO 12/19/24 19:13 100 mg ONCE ONE Administration Hydromorphone HCl 0.5 mg 12/19/24 18:18 12/19/24 18:23 Hydromorphone 0.5 Mg/0.5 Ml Inj IVP 0.5 mg Q1H PRN Administration Pain Sodium Chloride 1,000 mls @ 500 mls/hr 12/19/24 15:10 12/19/24 15:53 0.9 % Sodium Chloride 1000 Ml IV 12/19/24 17:09 Infused .Q2H VICKIE Infusion Sodium Chloride 1,000 mls @ 1,000 mls/hr 12/19/24 16:30 12/19/24 17:48 0.9 % Sodium Chloride 1000 Ml IV 12/19/24 17:29 Infused .Q1H VICKIE Infusion Magnesium Sulfate 2 gm in 50 mls @ 150 mls/hr 12/19/24 19:13 12/19/24 20:10 Magnesium Iv IVPB 12/19/24 19:32 Infused ONCE ONE Infusion Ketorolac Tromethamine 15 mg 12/19/24 15:55 12/19/24 16:02 Ketorolac 15 Mg/Ml Inj IVP 12/19/24 15:56 15 mg ONCE ONE Administration Methylprednisolone Sodium Succinate 125 mg 12/19/24 15:14 12/19/24 15:20 Methylprednisolone Sod Succ 62.5 Mg/Ml (125) IVP 12/19/24 15:15 125 mg ONCE ONE Administration <Kunal Jeong MD - Last Filed: 12/19/24 20:35> Medical Decision Making Lab Data Lab results reviewed: Yes I reviewed the patient's lab results <Shania Martinez MD - Last Filed: 12/24/24 20:37> Labs: Lab Results 12/19/24 12/19/24 12/19/24 Range/Units 14:30 14:45 16:25 WBC 15.17 H (4.50-11.00) K/uL RBC 5.31 H (4.00-5.20) m/uL Hgb 15.6 (12.0-16.0) gm/dL Hct 45.5 (33.0-51.0) % MCV 86 (80-100) fL MCH 29 (26-34) pg MCHC 34 (32-36) gm/dL RDW Coeff of Rosalina 11.8 (11.5-15.5) % Plt Count 303 (140-440) K/uL Neut % (Auto) 89.5 H (42.0-72.0) % Lymph % (Auto) 6.9 L (20-44) % [place] % (Auto) 2.4 (0.0-11.0) % Eos % (Auto) 0.0 (0.0-7.0) % Baso % (Auto) 0.0 (0.0-3.0) % Neut # (Auto) 13.60 H (1.7-7.0) K/uL Lymph # (Auto) 1.00 (0.90-2.90) K/uL [place] # (Auto) 0.40 (0.00-0.90) K/UL Eos # (Auto) 0.00 (0.00-0.50) K/uL Baso # (Auto) 0.00 (0.00-0.30) K/uL Abs Immat Gran (auto) 0.20 (0.00-0.30) K/uL Imm/Tot Granulo (auto) 1.2 % D-Dimer Quant (PE/DVT) < 0.27 (0.00-0.50) ug/ml VBG pH 7.390 (7.32-7.43) VBG pCO2 33 L (40-50) mmHG VBG pO2 67.0 H (25-47) mmHG VBG HCO3 20 L (21-28) mmol/L Sodium 135 (135-149) mmol/L Potassium 4.5 (3.6-5.1) mmol/L Chloride 108 (96-114) mmol/L Carbon Dioxide 18 L (20-32) mmol/L Anion Gap 9 (7-15) mEq/L BUN 14 (5-24) mg/dL Creatinine 0.8 (0.5-1.5) mg/dL Estimated Creat Clear 91.81 Estimated GFR 96 ml/min Glucose 228 H (60-115) mg/dL Lactate 3.1 H (0.5-1.9) mmol/L Calcium 9.0 (8.4-10.6) mg/dL Total Bilirubin 0.4 (0.1-1.5) mg/dL AST 29 (12-35) U/L ALT 32 (4-35) U/L Alkaline Phosphatase 61 (40-150) U/L Troponin I < 0.01 (0.01-0.04) ng/mL C-Reactive Protein 0.6 (0.5-1.0) mg/dL NT-Pro-B Natriuret Pep 113 (See Note) pg/mL Total Protein 7.1 (6.0-8.3) g/dL Albumin 3.9 (3.3-5.0) g/dL HCG, Qual Negative (Negative) SARS-CoV-2 (PCR) Negative SARS-CoV-2 (Negative) Influenza Type A (PCR) Negative PCR FLU A (Negative) Influenza Type B (PCR) Negative PCR FLU B (Negative) RSV (PCR) Negative PCR RSV (Negative) 12/19/24 Range/Units 17:25 WBC (4.50-11.00) K/uL RBC (4.00-5.20) m/uL Hgb (12.0-16.0) gm/dL Hct (33.0-51.0) % MCV (80-100) fL MCH (26-34) pg MCHC (32-36) gm/dL RDW Coeff of Rosalina (11.5-15.5) % Plt Count (140-440) K/uL Neut % (Auto) (42.0-72.0) % Lymph % (Auto) (20-44) % [place] % (Auto) (0.0-11.0) % Eos % (Auto) (0.0-7.0) % Baso % (Auto) (0.0-3.0) % Neut # (Auto) (1.7-7.0) K/uL Lymph # (Auto) (0.90-2.90) K/uL [place] # (Auto) (0.00-0.90) K/UL Eos # (Auto) (0.00-0.50) K/uL Baso # (Auto) (0.00-0.30) K/uL Abs Immat Gran (auto) (0.00-0.30) K/uL Imm/Tot Granulo (auto) % D-Dimer Quant (PE/DVT) (0.00-0.50) ug/ml VBG pH (7.32-7.43) VBG pCO2 (40-50) mmHG VBG pO2 (25-47) mmHG VBG HCO3 (21-28) mmol/L Sodium (135-149) mmol/L Potassium (3.6-5.1) mmol/L Chloride (96-114) mmol/L Carbon Dioxide (20-32) mmol/L Anion Gap (7-15) mEq/L BUN (5-24) mg/dL Creatinine (0.5-1.5) mg/dL Estimated Creat Clear Estimated GFR ml/min Glucose (60-115) mg/dL Lactate 2.9 H (0.5-1.9) mmol/L Calcium (8.4-10.6) mg/dL Total Bilirubin (0.1-1.5) mg/dL AST (12-35) U/L ALT (4-35) U/L Alkaline Phosphatase (40-150) U/L Troponin I (0.01-0.04) ng/mL C-Reactive Protein (0.5-1.0) mg/dL NT-Pro-B Natriuret Pep (See Note) pg/mL Total Protein (6.0-8.3) g/dL Albumin (3.3-5.0) g/dL HCG, Qual (Negative) SARS-CoV-2 (PCR) (Negative) Influenza Type A (PCR) (Negative) Influenza Type B (PCR) (Negative) RSV (PCR) (Negative) <Shania Martinez MD - Last Filed: 12/24/24 20:37> Lab Results 12/19/24 12/19/24 12/19/24 Range/Units 14:30 14:45 16:25 WBC 15.17 H (4.50-11.00) K/uL RBC 5.31 H (4.00-5.20) m/uL Hgb 15.6 (12.0-16.0) gm/dL Hct 45.5 (33.0-51.0) % MCV 86 (80-100) fL MCH 29 (26-34) pg MCHC 34 (32-36) gm/dL RDW Coeff of Rosalina 11.8 (11.5-15.5) % Plt Count 303 (140-440) K/uL Neut % (Auto) 89.5 H (42.0-72.0) % Lymph % (Auto) 6.9 L (20-44) % [place] % (Auto) 2.4 (0.0-11.0) % Eos % (Auto) 0.0 (0.0-7.0) % Baso % (Auto) 0.0 (0.0-3.0) % Neut # (Auto) 13.60 H (1.7-7.0) K/uL Lymph # (Auto) 1.00 (0.90-2.90) K/uL [place] # (Auto) 0.40 (0.00-0.90) K/UL Eos # (Auto) 0.00 (0.00-0.50) K/uL Baso # (Auto) 0.00 (0.00-0.30) K/uL Abs Immat Gran (auto) 0.20 (0.00-0.30) K/uL Imm/Tot Granulo (auto) 1.2 % D-Dimer Quant (PE/DVT) < 0.27 (0.00-0.50) ug/ml VBG pH 7.390 (7.32-7.43) VBG pCO2 33 L (40-50) mmHG VBG pO2 67.0 H (25-47) mmHG VBG HCO3 20 L (21-28) mmol/L Sodium 135 (135-149) mmol/L Potassium 4.5 (3.6-5.1) mmol/L Chloride 108 (96-114) mmol/L Carbon Dioxide 18 L (20-32) mmol/L Anion Gap 9 (7-15) mEq/L BUN 14 (5-24) mg/dL Creatinine 0.8 (0.5-1.5) mg/dL Estimated Creat Clear 91.81 Estimated GFR 96 ml/min Glucose 228 H (60-115) mg/dL Lactate 3.1 H (0.5-1.9) mmol/L Calcium 9.0 (8.4-10.6) mg/dL Total Bilirubin 0.4 (0.1-1.5) mg/dL AST 29 (12-35) U/L ALT 32 (4-35) U/L Alkaline Phosphatase 61 (40-150) U/L Troponin I < 0.01 (0.01-0.04) ng/mL C-Reactive Protein 0.6 (0.5-1.0) mg/dL NT-Pro-B Natriuret Pep 113 (See Note) pg/mL Total Protein 7.1 (6.0-8.3) g/dL Albumin 3.9 (3.3-5.0) g/dL HCG, Qual Negative (Negative) SARS-CoV-2 (PCR) Negative SARS-CoV-2 (Negative) Influenza Type A (PCR) Negative PCR FLU A (Negative) Influenza Type B (PCR) Negative PCR FLU B (Negative) RSV (PCR) Negative PCR RSV (Negative) 12/19/24 Range/Units 17:25 WBC (4.50-11.00) K/uL RBC (4.00-5.20) m/uL Hgb (12.0-16.0) gm/dL Hct (33.0-51.0) % MCV (80-100) fL MCH (26-34) pg MCHC (32-36) gm/dL RDW Coeff of Rosalina (11.5-15.5) % Plt Count (140-440) K/uL Neut % (Auto) (42.0-72.0) % Lymph % (Auto) (20-44) % [place] % (Auto) (0.0-11.0) % Eos % (Auto) (0.0-7.0) % Baso % (Auto) (0.0-3.0) % Neut # (Auto) (1.7-7.0) K/uL Lymph # (Auto) (0.90-2.90) K/uL [place] # (Auto) (0.00-0.90) K/UL Eos # (Auto) (0.00-0.50) K/uL Baso # (Auto) (0.00-0.30) K/uL Abs Immat Gran (auto) (0.00-0.30) K/uL Imm/Tot Granulo (auto) % D-Dimer Quant (PE/DVT) (0.00-0.50) ug/ml VBG pH (7.32-7.43) VBG pCO2 (40-50) mmHG VBG pO2 (25-47) mmHG VBG HCO3 (21-28) mmol/L Sodium (135-149) mmol/L Potassium (3.6-5.1) mmol/L Chloride (96-114) mmol/L Carbon Dioxide (20-32) mmol/L Anion Gap (7-15) mEq/L BUN (5-24) mg/dL Creatinine (0.5-1.5) mg/dL Estimated Creat Clear Estimated GFR ml/min Glucose (60-115) mg/dL Lactate 2.9 H (0.5-1.9) mmol/L Calcium (8.4-10.6) mg/dL Total Bilirubin (0.1-1.5) mg/dL AST (12-35) U/L ALT (4-35) U/L Alkaline Phosphatase (40-150) U/L Troponin I (0.01-0.04) ng/mL C-Reactive Protein (0.5-1.0) mg/dL NT-Pro-B Natriuret Pep (See Note) pg/mL Total Protein (6.0-8.3) g/dL Albumin (3.3-5.0) g/dL HCG, Qual (Negative) SARS-CoV-2 (PCR) (Negative) Influenza Type A (PCR) (Negative) Influenza Type B (PCR) (Negative) RSV (PCR) (Negative) <Kunal Jeong MD - Last Filed: 12/19/24 20:35> Imaging Data Chest x-ray: Attestation: I have reviewed the pertinent imaging results. <Shania Cortes MD - Last Filed: 12/24/24 20:37> My impression: I do not appreciate any acute pathology. <Shania Martinez MD - Last Filed: 12/24/24 20:37> Radiologist's impression: Patient: ISRRAEL VIEYRA Facility:?[facility] Patient ID:?[id number] Site Patient ID:?[id number]. Site :?[id number] Study:?XRay-Chest PORTABLE-12/19/2024 3:22:11 PM Ordering Physician:Morteza Jauregui Final Report: INDICATION: Cough and wheezing COMPARISON: 12/07/2024 chest radiograph TECHNIQUE: Single frontal radiographic view(s) of the chest. FINDINGS: No substantial pleural effusion. No definite focal pulmonary consolidation. Normal heart size. No acute osseous findings. IMPRESSION: No acute thoracic findings. Dictated by Sandeep Laboy MD @ 12/19/2024 3:35:27 PM (Electronic Signature) <Shania Martinez MD - Last Filed: 12/24/24 20:37> ECG Data Attestation: I personally reviewed and interpreted this ECG as follows: (Sinus tachycardia, 112 beats per minute. No evidence for any infarct or ischemia.) <Shania Martinez MD - Last Filed: 12/24/24 20:37> Prior ECG tracings: available for review <Shania Martinez MD - Last Filed: 12/24/24 20:37> Discharge Plan Discharge Clinical Impression: Acute bronchospasm, Headache, Bronchitis <Shania Martinez MD - Last Filed: 12/24/24 20:37> Patient Disposition: Home, Self-Care <Shania Martinez MD - Last Filed: 12/24/24 20:37> Condition: Stable <Shania Martinez MD - Last Filed: 12/24/24 20:37> Instructions: Bronchospasm (ED) <Shania Martinez MD - Last Filed: 12/24/24 20:37> Additional Instructions: Need to continue with the prednisone and the doxycycline as you were prescribed yesterday. Will have you use a nebulizer with DuoNebs every 6 hours as needed. Can use your albuterol inhaler between dosing of the DuoNeb. Continue with drinking plenty of fluids, it is important for you to stay hydrated. You absolutely need to try to refrain from smoking, will very likely worsen your symptoms right now. Once you are improved in about 4-6 weeks, I would highly recommend having formal pulmonary function tests done, you should follow up in clinic within the next week and these could be ordered by your primary care provider. If you notice worsening, further concerns with her breathing, please return for re-evaluation. If your pulse oximeter is going below 90%, we certainly need to recheck you. I have also written for some Robitussin with codeine that you can use at bedtime to help you get some sleep. <Shania Martinez MD - Last Filed: 12/24/24 20:37> Activity Level: Activity as Tolerated <Shania Martinez MD - Last Filed: 12/24/24 20:37> Activity as Tolerated <Kunal Jeong MD - Last Filed: 12/19/24 20:35> Prescriptions: New (DME) nebulizer and compressor Device See Rx Instructions .Route Qty: 1 0RF Rx Instructions: As directed ipratropium-albuterol 0.5 mg-3 mg(2.5 mg base)/3 mL solution for nebulization 3 ml inhalation QID PRNQty: 90 0RF codeine-guaifenesin [Guaifenesin AC] 10-100 mg/5 mL liquid 5 - 10 ml PO HS PRNQty: 120 0RF No Action aspirin 81 mg tablet,delayed release (DR/EC) 81 mg PO QDAY Qty: 90 3RF cholecalciferol (vitamin D3) 1,250 mcg (50,000 unit) capsule 1,250 mcg PO QWEEK Qty: 12 0RF hydrochlorothiazide 12.5 mg tablet 12.5 mg PO QAM Qty: 90 3RF lisinopril 20 mg tablet 20 mg PO QDAY Qty: 90 3RF omeprazole 20 mg capsule,delayed release(DR/EC) 20 mg PO DAILY Qty: 90 3RF ondansetron 8 mg tablet,disintegrating 8 mg PO Q8H PRN (Reason: for nausea/vomiting) Qty: 20 3RF propranolol 10 mg tablet 10 mg PO TID PRN (Reason: anxiety, htn, palpitations) Qty: 180 12RF valacyclovir 1 gram tablet 1,000 mg PO QDAY Qty: 30 5RF Ozempic 2 mg/dose (8 mg/3 mL) pen injector 2 mg subcut QWEEK Qty: 3 4RF duloxetine [Cymbalta] 20 mg capsule,delayed release(DR/EC) 20 mg PO QDAY Qty: 30 1RF azathioprine 50 mg tablet 50 mg PO BID doxycycline hyclate 100 mg capsule 100 mg PO BID 10 Days Qty: 20 0RF prednisone 20 mg tablet See Rx Instructions PO QDAY Qty: 16 0RF Rx Instructions: 3 po as single dose days 1-2, 2 po as single dose days 3-6, 1 po days 7-8, then discontinue. albuterol sulfate 90 mcg/actuation HFA aerosol inhaler 2 puff inhalation Q6H PRN (Reason: shortness of breath or wheezing) Qty: 6.7 0RF tizanidine 4 mg tablet 4 mg PO BID PRN (Reason: muscle spasticity) Qty: 30 3RF dextroamphetamine-amphetamine 25 mg capsule,extended release 24hr 25 mg PO QAM Qty: 30 0RF <Shania Martinez MD - Last Filed: 12/24/24 20:37> Follow Up/Referrals: Shaneka Harden MD [Primary Care Provider, [facility]] <Shania Martinez MD - Last Filed: 12/24/24 20:37> Stand Alone Forms: MyHealth Info Instructions <Shania Martinez MD - Last Filed: 12/24/24 20:37> Procedures ABG Interpretation ABG Results: 12/19/24 14:45 VBG pH 7.390 VBG pCO2 33 L VBG pO2 67.0 H VBG HCO3 20 L <Shania Martinez MD - Last Filed: 12/24/24 20:37> 12/19/24 14:45 VBG pH 7.390 VBG pCO2 33 L VBG pO2 67.0 H VBG HCO3 20 L <Kunal Jeong MD - Last Filed: 12/19/24 20:35>
--- NOTE | 2024-12-19 14:44 | CRLHL7_ITS ---
For Patients: As a result of the Century Cures Act, medical imaging exams and procedure reports are released immediately into your electronic medical record. You may view this report before your referring provider. If you have questions, please contact your health care provider. INDICATION: Cough and wheezing COMPARISON: 12/07/2024 chest radiograph TECHNIQUE: Single frontal radiographic view(s) of the chest. FINDINGS: No substantial pleural effusion. No definite focal pulmonary consolidation. Normal heart size. No acute osseous findings. IMPRESSION: No acute thoracic findings. Dictated by Sandeep Laboy MD @ 12/19/2024 3:35:27 PM (Electronically Signed)
[2024-12-19] MEDS: IPRAT-ALBUT 0.5-2.5 MG/3 ML NEB 1 NEB IH ×2 (14:51→16:50)
[2024-12-19 14:54] LABS: HCO3 VBG 20 mmol/L (21-28); Lactate* 3.1 mmol/L (0.5-1.9); PCO2 VBG 33 mmHG (40-50); PO2 VBG 67.0 mmHG (25-47); pH VBG 7.390 (7.32-7.43)
[2024-12-19 15:00] LABS: Hematocrit* 45.5 % (33.0-51.0); Hemoglobin* 15.6 gm/dL (12.0-16.0); Immature Granulocytes Pct Auto 1.2 %; Mean Corpuscular HGB Conc 34 gm/dL (32-36); Mean Corpuscular Hemoglobin 29 pg (26-34); Mean Corpuscular Volume 86 fL (80-100); RDW Coefficient of Variation % 11.8 % (11.5-15.5); Red Blood Count* 5.31 m/uL (4.00-5.20); White Blood Count* 15.17 K/uL (4.50-11.00)
[2024-12-19 15:04] LABS: Immature Granulocytes Abs Auto 0.20 K/uL (0.00-0.30); Lymphocytes Absolute Auto 1.00 K/uL (0.90-2.90); Slide Review Reflex No
[2024-12-19 15:15] LABS: Albumin* 3.9 g/dL (3.3-5.0); Chloride* 108 mmol/L (96-114); Sodium* 135 mmol/L (135-149)
[2024-12-19 15:16] LABS: Potassium* 4.5 mmol/L (3.6-5.1)
[2024-12-19 15:19] LABS: Alanine Aminotransferase* 32 U/L (4-35); Alkaline Phosphatase* 61 U/L (40-150); Anion Gap 9 mEq/L (7-15); Aspartate Amino Transferase* 29 U/L (12-35); Bilirubin Total* 0.4 mg/dL (0.1-1.5); Blood Urea Nitrogen* 14 mg/dL (5-24); Calcium* 9.0 mg/dL (8.4-10.6); Carbon Dioxide* 18 mmol/L (20-32); Creatinine* 0.8 mg/dL (0.5-1.5); Est. Creatinine Clearance* 91.81; Estimated Glomerular Filt Rate 96 ml/min; Glucose* 228 mg/dL (60-115); Total Protein* 7.1 g/dL (6.0-8.3)
[2024-12-19] MEDS: METHYLPREDNISOLONE SOD SUCC 62.5 MG/ML (125) 125 MG IVP (15:20)
[2024-12-19 15:21] LABS: PCR FLU A Negative PCR FLU A (Negative); PCR FLU B Negative PCR FLU B (Negative); PCR RSV Negative PCR RSV (Negative); SARS PCR* Negative SARS-CoV-2 (Negative)
[2024-12-19 15:28] LABS: D Dimer Quantitative* < 0.27 ug/ml (0.00-0.50)
[2024-12-19] MEDS: ALBUTEROL SULFATE 2.5 MG/3 ML VIAL.NEB NEB ×2 (15:29)
[2024-12-19 15:43] LABS: NT Pro B Type NatriureticPept* 113 pg/mL (See Note)
--- NOTE | 2024-12-19 16:57 | CRLHL7_ITS ---
For Patients: As a result of the Century Cures Act, medical imaging exams and procedure reports are released immediately into your electronic medical record. You may view this report before your referring provider. If you have questions, please contact your health care provider. INDICATION: Fever, cough, dyspnea, and tachycardia. Concern for pulmonary embolism. TECHNIQUE: CT chest PE was acquired with 95 cc Isovue 370 IV contrast. Multiplanar reformats were performed including 3D MIP reconstructions. COMPARISON: Chest x-ray 12/19/2024. FINDINGS: Heart and vasculature: Limited evaluation of the pulmonary arterial tree due to artifact. Within these limitations, no definite pulmonary embolism identified through the segmental level. Main pulmonary artery is normal in caliber. No thoracic aortic aneurysm. No cardiomegaly or pericardial effusion. No CT evidence of right heart strain. Lungs and pleura: Patchy bibasilar consolidation. Scattered bilateral multilobar ground-glass attenuation. No pleural effusion or pneumothorax. Patent central airways. Lymph nodes/mediastinum: No suspicious lymphadenopathy. Chest wall: No suspicious chest wall mass or fluid collection. Upper abdomen: No acute abnormality. Bones: No acute abnormality. IMPRESSION: 1. Limited evaluation of the pulmonary arterial tree due to artifact. No definite pulmonary embolism appreciated through the segmental level. 2. Patchy bibasilar consolidation, likely in part due to atelectasis, however superimposed developing infectious process is not definitively excluded in the appropriate clinical context. Scattered bilateral multilobar ground-glass attenuation likely related to air trapping and/or small airway disease. Please note that all CT scans at this facility use dose modulation, iterative reconstruction, and/or weight-based dosing when appropriate to reduce radiation dose to as low as reasonably achievable. Dictated by Clem Can MD @ 12/19/2024 6:27:56 PM (Electronically Signed)
[2024-12-19 17:35] LABS: Lactate* 2.9 mmol/L (0.5-1.9)
[2024-12-19 18:09] LABS: HCG Qualitative Serum* Negative (Negative)
[2024-12-19] MEDS: MAGNESIUM IV 2 GM/50 ML PIGGYBACK IVPB (19:20)
[2024-12-19] MEDS: DOXYCYCLINE HYCLATE 100 MG PO (19:20)
== END 2024-12-19 20:43 | disposition home or self-care (01) ==
PROVIDERS: Family Medicine; Emergency Provider Emergency Medicine; PCP Family Medicine
DX: J40 Bronchitis, not specified as acute or chronic (principal); R51.9 Headache, unspecified; F17.210 Nicotine dependence, cigarettes, uncomplicated
CPT/HCPCS: 36415; 71045; 71275; 80053; 82803; 83605; 83880; 84484; 84703; 85025; 85379; 86140; 87040; 87631; 93005; 94640; 94761; 96365; 96375; 99284; 99285; A9270; J1171; J1885; J2919; J3475; J7030; Q9967